=== PATIENT | male | born 1940 | race Caucasian/White ===

== ENCOUNTER 2022-12-27 08:30 | Day surgery (SDC) | payer OTHER, BC ==
[2022-12-23 13:19] LABS: Hematocrit 38.5 % (39.6-49.0); Lymphocytes % 19.8 % (15.3-44.8); MCV 93.8 fL (80-100); Platelets 170 thou/uL (152-406)
--- NOTE | 2022-12-23 13:29 | RAD REPORT ---
EXAM DESCRIPTION: RAD - Chest Pa And Lat (2 Views) - 12/23/2022 1:22 pm CLINICAL HISTORY: Pre op pending heart catheterization Chest pain. COMPARISON: Chest Pa And Lat (2 Views) dated 01/02/2019; Chest Pa And Lat (2 Views) dated 05/19/2017; Chest Pa And Lat (2 Views) dated 04/18/2017; Chest Single View dated 03/11/2017 TECHNIQUE: PA and lateral views of the chest were obtained. FINDINGS: The lungs are hyperexpanded compatible with COPD. The heart is upper limit of normal in si ze. No fracture or aggressive bony process. IMPRESSION: COPD without acute process identified. The USPSTF recommends annual screening for lung cancer with low-dose CT (LDCT) in adults aged 50 to 8 0 years who have a 20 pack-year smoking history and currently smoke or have quit within the past 15 y ears.
[2022-12-23 13:41] LABS: Potassium 4.4 mEq/L (3.5-5.1)
[2022-12-27] MEDS ORDERED: NA CHLORIDE 0.9% 500 ML ONE (08:59)
[2022-12-27 09:21] VITALS: TEMP 97.4
[2022-12-27] MEDS ORDERED: VERAPAMIL HCL 10 MG/4 ML VIAL IV ONE (09:38)
[2022-12-27] MEDS ORDERED: LIDOCAINE 1% 20 ML MDV ONE (09:38)
[2022-12-27] MEDS ORDERED: MIDAZOLAM HCL 2 MG/2 ML INJ ONE (09:38)
[2022-12-27] MEDS ORDERED: HEPARIN 5000 UNIT/ML 1 ML VIAL ONE (09:38)
[2022-12-27] MEDS ORDERED: HEPA 1000U/500MLS 2,000 UNIT/1,000 ML BAG IV ONE (09:38)
[2022-12-27] MEDS ORDERED: CLOPIDOGREL 75 MG TABLET ONE (09:39)
[2022-12-27] MEDS ORDERED: ASPIRIN 325 MG TAB ONE (09:39)
[2022-12-27] MEDS ORDERED: ATROPINE SULF 1 MG/10 ML SYR IV ONE (09:39)
[2022-12-27] MEDS ORDERED: TICAGRELOR 90 MG TABLET PO ONE (09:39)
[2022-12-27] MEDS ORDERED: HEPARIN 10,000 UNIT/10 ML VIAL IV ONE (09:39)
[2022-12-27] MEDS ORDERED: FENTANYL CITR 100 MCG/2 ML ONE (09:40)
[2022-12-27] MEDS ORDERED: NITROGLYCERIN/D5W 25 MG/250 ML BTL IV ONE (10:03)
[2022-12-27] MEDS ORDERED: NITROGLYCERIN 100 MCG/ML SYR (for cath lab use only) IV ONE (10:03)
[2022-12-27 12:13] VITALS: O2SAT 95
[2022-12-27 12:40] VITALS: BP 145/55
--- NOTE | 2022-12-27 13:17 | EKG ---
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
--- NOTE | 2022-12-27 18:42 | OP ---
Date of Procedure: 12/27/2022 Surgeon: BRONSON NORIEGA Procedures Performed: 1.Selective coronary angiogram. 2.Left heart catheterization. Indication: Abnormal stress test with chest pain. Access: Right radial artery 6-Icelandic closed with TR band. Complications: None. Bleeding: Less than 20 mL. Description Of Procedure: After risks, benefits, alternatives were explained, patient agreed to proc edure and signed informed consent. Patient was brought into the cardiac catheterization laboratory, prepped and draped in usual sterile fashion. Then, I accessed the right radial artery using [employer] micropuncture kit, placed 6-Icelandic Slender sheath and took 5-Icelandic [place] 4.0 catheter into the aor tic root, engaged left main and right coronary artery, took standard views. Catheter was pushed over the wire into the LV, measured the LVEDP. Pullback did not record any gradient. Removed the cathet er and the sheath, placed TR band with good hemostasis. Findings: 1.Left main: It is moderate-sized and normal. 2.LAD: Diffusely small artery mid 70%, mid to distal 60%, and luminal irregularity throughout. Mil d diffuse disease of the diagonal branches. 3.Left circumflex: It is a large artery with the ostial 80%, mid 60%, and then OM branch takes off and has proximal 90% stenosis and then there is luminal irregularity and [id number] circ is 90% st enosed. 4.RCA: There is dominant circulation with the distal 50%, and the PDA has ostial 90% and mid 70%. 5.LVEDP normal at 9 mmHg. Conclusion: 1.Severe multivessel coronary artery disease. 2.Normal LVEDP. Recommendation: A CABG eval. /JOSIEL Voice ID: [id number] Report ID: [id number]
== END 2022-12-27 12:35 | disposition home or self-care (01) ==
LOC: CCL 08:30
PROVIDERS: ATTEND Internal Medicine
DX: I25.10 Atherosclerotic heart disease of native coronary artery without angina pectoris (principal); I10 Essential (primary) hypertension; E11.9 Type 2 diabetes mellitus without complications; E78.2 Mixed hyperlipidemia; R60.0 Localized edema; Z79.4 Long term (current) use of insulin; Z79.899 Other long term (current) drug therapy; Z82.49 Family history of ischemic heart disease and other diseases of the circulatory system
CPT/HCPCS: 93005; 85025; 80048; 36415; 85610; 82947 ×2; 85730; 71046; 93458; 76937; C1893; Q9966; J1644; J2001; J2250; J3010; J7040; J0461

== ENCOUNTER 2024-09-21 00:05 | Inpatient (IN) | payer OTHER, BC ==
[2024-09-21 00:55] LABS: Absolute Lymphocytes (CBC) 0.6 K/uL (0.7-4.9); Absolute Monocytes 0.3 K/uL (0.1-1.3); Absolute Neutrophil 6.2 K/uL (1.8-8.0); Basophils % 0.2 % (0-1.3); Eosinophils % 0.3 % (0-4.4); Hematocrit 43.6 % (39.6-49.0); Hemoglobin 13.9 g/dL (13.6-17.9); Lymphocytes % 8.2 % (15.3-44.8); MCH 32.3 pg (27.0-35.0); MCHC 31.9 g/dL (32.0-36.0); MCV 101.2 fL (80-100); MPV 8.6 fL (7.6-11.3); Monocytes % 4.9 % (3.3-12.3); Neutrophils % 86.4 % (41.7-73.7); Nucleated Red Blood Cells % 0.1 % (0-0); Platelets 213 thou/uL (152-406); RBC Red Blood Cell Count 4.31 M/uL (4.33-5.43); Red Cell Distribution Width 14.6 % (12.1-15.2)
[2024-09-21] MEDS ORDERED: NA CHLORIDE 0.9% 500 ML ONE (00:56)
[2024-09-21 00:58] LABS: PT Prothrombin Time 11.4 SECONDS (10-13.0)
[2024-09-21 01:26] LABS: Albumin 3.8 g/dL (3.4-5.0); Anion Gap 22.8 mEq/L (5.0-15.0); Bilirubin Direct 0.3 mg/dL (0-0.2); Bilirubin Indirect, Calculated 0.7 mg/dL (0.2-0.8); Magnesium 2.3 mg/dL (1.6-2.4); Potassium 5.8 mEq/L (3.5-5.1); Protein, Total 7.8 g/dL (6.4-8.2); Troponin High Sensitivity 19.5 pg/mL (<58.9)
--- NOTE | 2024-09-21 01:36 | EDPHYS ---
Physician Documentation [facility] Name: Nickolas Ortiz Age: 84 yrs Sex: Male : 1940 Arrival Date: 09/21/2024 Time: 00:05 Bed 17 Private MD: ED Physician Zay Johnson HPI: 09/21 00:30 This 84 yrs old Male presents to ER via Unassigned with complaints of generalized sp3 weakness, high blood sugar. 00:30 84-year-old male with history of hyperlipidemia, diabetes, CAD status post CABG sp3 presents via EMS for generalized weakness, near syncope and hyperglycemia. EMS also reports that he had bradycardic episode into the 40s x 1 while having emesis. Symptoms began on for the last 24 hours or so. Patient is very poor historian. ROS currently negative for headache, neck pain, chest pain, shortness of breath, diarrhea, fever, known sick contacts, prolonged immobilization, or any other signs or symptoms on ROS at this time.. Historical: - Allergies: 01:25 No Known Allergies; bm8 - Home Meds: 01:25 amlodipine 10 mg tab twice daily [Active]; areds eye drops [Active]; aspirin 81 mg Oral bm8 chew once daily [Active]; hydrochlorothiazide 12.5 mg Oral cap 1 cap twice daily [Active]; irbesartan 300 mg Oral tab 1 tab once daily [Active]; levothyroxine 175 mcg tab 1 tab once daily [Active]; losartan 100 mg Oral tab 1 tab once daily [Active]; Novolin N Sub-Q [Active]; Novolin R Sub-Q [Active]; Vitamin D Oral [Active]; - PMHx: 01:25 Diabetes - IDDM; High Cholesterol; "heart Problems" (High Cholesterol); bm8 - PSHx: 01:25 x5 "heart bypasses" (High Cholesterol); bm8 - Immunization history:: Adult Immunizations unknown. - Infectious Disease History:: Denies. - Social history:: Smoking status: unknown. ROS: 00:32 Constitutional: Negative for fever, chills, and weight loss, Eyes: Negative for injury, sp3 pain, redness, and discharge, Neck: Negative for injury, pain, and swelling, Respiratory: Negative for shortness of breath, cough, wheezing, and pleuritic chest pain, Back: Negative for injury and pain, MS/Extremity: Negative for injury and deformity, Skin: Negative for injury, rash, and discoloration, Neuro: Negative for headache, weakness, numbness, tingling, and seizure, Psych: Negative for depression, anxiety, suicide ideation, homicidal ideation, and hallucinations, Allergy/Immunology: Negative for hives, rash, and allergies, Endocrine: Negative for neck swelling, polydipsia, polyuria, polyphagia, and marked weight changes, Hematologic/Lymphatic: Negative for swollen nodes, abnormal bleeding, and unusual bruising, 00:32 All other systems are negative, Exam: 00:32 Constitutional: This is a well developed, well nourished patient who is awake, alert, sp3 and in no acute distress. Head/Face: Normocephalic, atraumatic. Eyes: Pupils equal round and reactive to light, extra-ocular motions intact. Lids and lashes normal. Conjunctiva and sclera are non-icteric and not injected. Cornea within normal limits. Periorbital areas with no swelling, redness, or edema. Neck: Trachea midline, no thyromegaly or masses palpated, and no cervical lymphadenopathy. Supple, full range of motion without nuchal rigidity, or vertebral point tenderness. No Meningismus. Chest/axilla: Normal chest wall appearance and motion. Nontender with no deformity. No lesions are appreciated. Cardiovascular: Regular rate and rhythm with a normal S1 and S2. No gallops, murmurs, or rubs. Normal PMI, no JVD. No pulse deficits. Respiratory: Lungs have equal breath sounds bilaterally, clear to auscultation and percussion. No rales, rhonchi or wheezes noted. No increased work of breathing, no retractions or nasal flaring. Abdomen/GI: Soft, non-tender, with normal bowel sounds. No distension or tympany. No guarding or rebound. No evidence of tenderness throughout. Back: No spinal tenderness. No costovertebral tenderness. Full range of motion. Skin: Warm, dry with normal turgor. Normal color with no rashes, no lesions, and no evidence of cellulitis. MS/ Extremity: Pulses equal, no cyanosis. Neurovascular intact. Full, normal range of motion. Neuro: Awake and alert, GCS 15, oriented to person, place, time, and situation. Cranial nerves II-XII grossly intact. Motor strength 5/5 in all extremities. Sensory grossly intact. Cerebellar exam normal. Normal gait. Psych: Awake, alert, with orientation to person, place and time. Behavior, mood, and affect are within normal limits. 01:28 ECG was reviewed by the Attending Physician. EKG demonstrates normal sinus rhythm at 74 sp3 bpm with normal intervals except QTc of 468, normal QRS, normal axis, nonspecific diffuse ST/T changes without evidence of acute ischemia. Vital Signs: 00:14 BP 141 / 45; Pulse 76; Resp 18; Temp 97.8(O); Pulse Ox 97% on R/A; Weight 80.29 kg; oe Height 5 ft. 8 in. ; 01:29 BP 126 / 42; Pulse 80; Resp 17; Temp 97.8; Pulse Ox 97% ; Pain 5/10; bm8 04:47 BP 133 / 53; Pulse 88; Resp 17 S; Pulse Ox 95% on R/A; ha1 00:14 Body Mass Index 26.91 (80.29 kg, 172.72 cm) oe 01:29 Pain Scale: Adult bm8 MDM: 00:12 Medical Screening Exam initiated sp3 00:32 Data reviewed: vital signs, nurses notes, EMS record, old medical records, lab test sp3 result(s), radiologic studies. ED course: 84-year-old male with PMH above now with hyperglycemia and generalized weakness. Differential diagnosis includes DKA, hyperglycemia, dehydration, other metabolic syndrome, ACS, among others. Workup will include EKG, chest x-ray, general labs including lactate and intervention with insulin and/or IV fluids as needed. Disposition pending workup and patient course.. 01:34 ED course: Patient with anion gap and elevated blood glucose. ABG pending we will sp3 continue IV fluids and insulin drip. Patient will be admitted to internal medicine.. 09/21 00:12 Order name: Basic Metabolic Panel; Complete Time: : sp3 09/21 00:12 Order name: CBC with Diff sp3 09/21 00:12 Order name: LFT's; Complete Time: : sp3 09/21 00:12 Order name: Magnesium; Complete Time: : sp3 09/21 00:12 Order name: NT PRO-BNP; Complete Time: :32 sp3 09/21 00:12 Order name: PT-INR; Complete Time: 01:32 sp3 09/21 00:12 Order name: Troponin HS; Complete Time: 01:32 sp3 09/21 00:12 Order name: Lactate w/ 2H reflex if indic.; Complete Time: 01:32 sp3 09/21 00:59 Order name: Manual Differential EDMS 09/21 01:32 Order name: Ghost Lactate-NO COLLECT Timer EDMS 09/21 01:33 Order name: ABG sp3 09/21 02:33 Order name: CBC with Automated Diff EDMS 09/21 02:33 Order name: CBC with Automated Diff EDMS 09/21 02:33 Order name: Comprehensive Metabolic Panel EDMS 09/21 02:33 Order name: Comprehensive Metabolic Panel EDMS 09/21 02:37 Order name: Basic Metabolic Panel EDMS 09/21 02:37 Order name: Basic Metabolic Panel EDMS 09/21 02:37 Order name: Basic Metabolic Panel EDMS 09/21 02:37 Order name: Basic Metabolic Panel EDMS 09/21 05:17 Order name: Lactate Sepsis 2 HR Follow-up EDMS 09/21 05:28 Order name: Glucose, Ancillary Testing EDMS 09/21 00:12 Order name: XRAY Chest (1 view) sp3 09/21 00:12 Order name: Cardiac monitoring; Complete Time: 01: sp3 09/21 00:12 Order name: EKG - Nurse/Tech; Complete Time: 01: sp3 09/21 00:12 Order name: IV Saline Lock; Complete Time: 00:55 sp3 09/21 00:12 Order name: Labs collected and sent; Complete Time: 00:55 sp3 09/21 00:12 Order name: O2 Per Protocol; Complete Time: 01: sp3 09/21 00:12 Order name: O2 Sat Monitoring; Complete Time: : sp3 09/21 00:33 Order name: Accucheck; Complete Time: 05:27 sp3 09/21 03:50 Order name: Labs - recollect needed: green top; Complete Time: 05:10 kmf Administered Medications: 01:08 Drug: NS 0.9% IV 500 ml 500 ml IV at 1 bolus once; to be given as a bolus over 30 ha1 minutes Volume: 500 ml; Route: IV; Rate: 1 bolus; Site: right antecubital; 02:38 Follow up: Response: No adverse reaction; IV Status: Completed infusion bm8 02:24 Drug: Insulin Drip - (Insulin Regular Human IVP 100 units, NS 0.9% IV 100 ml) IV at bm8 calculated rate continuous; Standard concentration 1unit/ml; Dose for DKA is 0.1 units/kg/hr {Co-Signature: lg3 (Kristyn Camejo RN).} Route: IV; Rate: calculated rate; Site: left forearm; 02:37 Follow up: Response: No adverse reaction; IV Status: Infusion continued upon admission bm8 05:30 Follow up: Response: No adverse reaction; IV Status: Infusion continued upon admission ha1 02:25 Drug: NS 0.9% IV 1000 ml IV at 1000 ml once; to be given as a bolus over 60 minutes bm8 Route: IV; Rate: 1000 ml; Site: left forearm; 02:38 Follow up: Response: No adverse reaction; IV Status: Infusion continued upon admission bm8 03:11 Drug: Ondansetron IVP 8 mg IVP once; over 2 minutes Route: IVP; Site: right antecubital; 03:30 Follow up: Response: No adverse reaction; Nausea is decreased ha1 Disposition Summary: 09/21/24 01:36 Hospitalization Ordered Notes: Hospitalization Status: Inpatient Admission sp3 Provider: Slava Altman Location: Intensive Care Unit sp3 Condition: Fair sp3 Problem: an acute exacerbation sp3 Symptoms: have worsened sp3 Bed/Room Type: Standard 3 Room Assignment: 5-(09/21/24 04:43) Diagnosis - DKA, lactic acidosis, dehydration sp3 Forms: - Medication Reconciliation Form sp3 - SBAR form sp3 - Leadership Thank You Letter sp3 Critical care time excluding procedures: 01:35 Critical care time: Bedside Care: 20 minutes, Consultation: 10 minutes. Total time: 30 sp3 minutes Signatures: Dispatcher [employer] Mary Barriga RN RN kl Patel, Setul, MD MD sp3 Taya Cota RN RN ha1 Mariely Garcia [facility] Salvador Jaramillo RN RN bm8 Kristyn Camejo RN lg3 Corrections: (The following items were deleted from the chart) 00:13 00:13 BASIC METABOLIC PANEL+C.LAB.BRZ ordered. EDMS EDMS 00:13 00:13 CBC+H.LAB.BRZ ordered. EDMS EDMS 00:13 00:13 HEPATIC FUNCTION+C.LAB.BRZ ordered. EDMS EDMS 00: 00:13 MAGNESIUM+C.LAB.BRZ ordered. EDMS EDMS 00:13 00:13 PROBNP+C.LAB.BRZ ordered. EDMS EDMS 00: 00:13 PROTIME (+INR)+COAG.LAB.BRZ ordered. EDMS EDMS 00: 00:13 Troponin High Sensitivity+C.LAB.BRZ ordered. EDMS EDMS 00: 00:13 LACTATE+C.LAB.BRZ ordered. EDMS EDMS 00:13 00:13 Chest Single View+RAD.RAD.BRZ ordered. EDMS EDMS 04:43 01:36 sp3 kl
--- NOTE | 2024-09-21 01:36 | ER ---
Nurse's Notes [facility] Name: Nickolas Oritz Age: 84 yrs Sex: Male : 1940 Arrival Date: 09/21/2024 Time: 00:05 Bed 17 Private MD: Diagnosis: DKA, lactic acidosis, dehydration Presentation: 09/21 00:11 Chief complaint: Patient states: i have chest pain that started last ngiht. bm8 00:11 Coronavirus screen: At this time, the client does not indicate any symptoms associated bm8 with coronavirus-19. Ebola Screen: Patient negative for fever greater than or equal to 101.5 degrees Fahrenheit, and additional compatible Ebola Virus Disease symptoms Patient denies exposure to infectious person. Patient denies travel to an Ebola-affected area in the 21 days before illness onset. No symptoms or risks identified at this time. Initial Sepsis Screen: Does the patient meet any 2 criteria? No. Patient's initial sepsis screen is negative. Does the patient have a suspected source of infection? No. Patient's initial sepsis screen is negative. Risk Assessment: Do you want to hurt yourself or someone else? Patient reports no desire to harm self or others. Onset of symptoms is unknown. 00:11 Method Of Arrival: EMS: [facility] bm8 00:11 Acuity: ROBEL 2 bm8 Triage Assessment: 01:25 General: Appears in no apparent distress. uncomfortable, Behavior is calm, appropriate bm8 for age. Pain: Complains of pain in chest Pain currently is 5 out of 10 on a pain scale. Quality of pain is described as aching, crampy. EENT: No deficits noted. No signs and/or symptoms were reported regarding the EENT system. Neuro: Level of Consciousness is awake, alert, obeys commands, Oriented to person, place, situation, Appropriate for age. Cardiovascular: Reports chest pain, Heart tones S1 S2 present Capillary refill < 3 seconds in bilateral fingers. Respiratory: Airway is patent Respiratory effort is even, unlabored, Respiratory pattern is regular, symmetrical, Breath sounds are clear bilaterally. Historical: - Allergies: 01:25 No Known Allergies; bm8 - Home Meds: 01:25 amlodipine 10 mg tab twice daily [Active]; areds eye drops [Active]; aspirin 81 mg Oral bm8 chew once daily [Active]; hydrochlorothiazide 12.5 mg Oral cap 1 cap twice daily [Active]; irbesartan 300 mg Oral tab 1 tab once daily [Active]; levothyroxine 175 mcg tab 1 tab once daily [Active]; losartan 100 mg Oral tab 1 tab once daily [Active]; Novolin N Sub-Q [Active]; Novolin R Sub-Q [Active]; Vitamin D Oral [Active]; - PMHx: 01:25 Diabetes - IDDM; High Cholesterol; "heart Problems" (High Cholesterol); bm8 - PSHx: 01:25 x5 "heart bypasses" (High Cholesterol); bm8 - Immunization history:: Adult Immunizations unknown. - Infectious Disease History:: Denies. - Social history:: Smoking status: unknown. Screenin:47 [facility] ED Fall Risk Assessment (Adult) History of falling in the last 3 months, ha1 including since admission Yes- single mechanical fall (1 pt) Confusion or Disorientation Yes (5 pts) Intoxicated or Sedated No (0 pts) Impaired Gait Yes (1 pt) Mobility Assist Device Used Yes (1 pt) Altered Elimination Yes (1 pt) Score/Fall Risk Level 3 or more points = High Risk Oriented to surroundings, Maintained a safe environment, Educated pt \\T\\ family on fall prevention, incl call for assistance when getting out of bed, Hourly rounding (assess needs \\T\\ fall precautionary measures) done. Abuse screen: Denies threats or abuse. Denies injuries from another. Nutritional screening: No deficits noted. Tuberculosis screening: No symptoms or risk factors identified. Assessment: 03:00 Reassessment: Patient and/or family updated on plan of care and expected duration. Pain ha1 level reassessed. Neuro: Level of Consciousness is awake, alert, obeys commands, Oriented to person, situation. Cardiovascular: Capillary refill < 3 seconds Patient's skin is warm and dry. Respiratory: Airway is patent Respiratory effort is even, unlabored, Respiratory pattern is regular, symmetrical. GI: Abdomen is round non-distended, Reports nausea, vomiting. : No signs and/or symptoms were reported regarding the genitourinary system. Derm: Skin is pink, warm \\T\\ dry. Musculoskeletal: Circulation, motion, and sensation intact. 03:50 Reassessment: Patient and/or family updated on plan of care and expected duration. Pain ha1 level reassessed. 05:15 Reassessment: report given ADALI Guadarrama. ha1 Vital Signs: 00:14 BP 141 / 45; Pulse 76; Resp 18; Temp 97.8(O); Pulse Ox 97% on R/A; Weight 80.29 kg; oe Height 5 ft. 8 in. ; 01:29 BP 126 / 42; Pulse 80; Resp 17; Temp 97.8; Pulse Ox 97% ; Pain 5/10; bm8 04:47 BP 133 / 53; Pulse 88; Resp 17 S; Pulse Ox 95% on R/A; ha1 00:14 Body Mass Index 26.91 (80.29 kg, 172.72 cm) oe 01:29 Pain Scale: Adult bm8 ED Course: 00:11 Patient arrived in ED. sp3 00:11 Zay Johnson MD is Attending Physician. sp3 00:11 Patient has correct armband on for positive identification. Placed in gown. Bed in low ha1 position. Call light in reach. Side rails up X 1. 00:54 Inserted saline lock: 22 gauge in right forearm, using aseptic technique. Blood oe collected. Flushed with 10 mL NS. 00:55 Basic Metabolic Panel Sent. oe 00:55 CBC with Diff Sent. oe 00:55 LFT's Sent. oe 00:55 Magnesium Sent. oe 00:55 NT PRO-BNP Sent. oe 00:55 PT-INR Sent. oe 00:56 Troponin HS Sent. oe 00:59 XRAY Chest (1 view) In Process Unspecified. EDMS 01:06 EKG done, by ED staff, reviewed by Zay Johnson MD. oe 01:20 Salvador Jaramillo, RN is Primary Nurse. bm8 01:25 Triage completed. bm8 01:25 Arm band placed on right wrist. bm8 01:35 Slava Altman MD is Hospitalizing Provider. sp3 05:14 Inserted saline lock: 22 gauge in left Blood collected. Flushed with 10 mL NS. oe 05:17 No provider procedures requiring assistance completed. Patient admitted, IV remains in ha1 place. Administered Medications: 01:08 Drug: NS 0.9% IV 500 ml 500 ml IV at 1 bolus once; to be given as a bolus over 30 ha1 minutes Volume: 500 ml; Route: IV; Rate: 1 bolus; Site: right antecubital; 02:38 Follow up: Response: No adverse reaction; IV Status: Completed infusion bm8 02:24 Drug: Insulin Drip - (Insulin Regular Human IVP 100 units, NS 0.9% IV 100 ml) IV at bm8 calculated rate continuous; Standard concentration 1unit/ml; Dose for DKA is 0.1 units/kg/hr {Co-Signature: lg3 (Kristyn Camejo RN).} Route: IV; Rate: calculated rate; Site: left forearm; 02:37 Follow up: Response: No adverse reaction; IV Status: Infusion continued upon admission bm8 05:30 Follow up: Response: No adverse reaction; IV Status: Infusion continued upon admission ha1 02:25 Drug: NS 0.9% IV 1000 ml IV at 1000 ml once; to be given as a bolus over 60 minutes bm8 Route: IV; Rate: 1000 ml; Site: left forearm; 02:38 Follow up: Response: No adverse reaction; IV Status: Infusion continued upon admission bm8 03:11 Drug: Ondansetron IVP 8 mg IVP once; over 2 minutes Route: IVP; Site: right antecubital;kl 03:30 Follow up: Response: No adverse reaction; Nausea is decreased ha1 Medication: 04:48 VIS not applicable for this client. ha1 Outcome: 01:36 Decision to Hospitalize by Provider. sp3 05:17 Admitted to ICU accompanied by nurse, via stretcher, room 5, with chart, ha1 05:17 Condition: stable 05:17 Instructed on the need for admit, Demonstrated understanding of instructions, 06:08 Patient left the ED. ha1 Signatures: Dispatcher [employer] Mary Barriga, RN Vinnie Hernandez Setul, MD MD sp3 Taya Cota RN RN ha1 Salvador Jaramillo RN RN bm8 Able, Lacie RN lg3
[2024-09-21] MEDS ORDERED: INSULIN REGULAR (HUMAN) 100 UNIT/ML ONE (02:08)
[2024-09-21] MEDS ORDERED: NA CHLORIDE 0.9% 100 ML ONE (02:09)
[2024-09-21] MEDS ORDERED: NA CHLORIDE 0.9% 1,000 ML ONE (02:09)
[2024-09-21 02:13] LABS: Band Neutrophils 6 % (0-1); Blood Morphology Comment NOT SEEN (NOT SEEN); Differential Total Cells Count 100; Eosinophils 1 % (0-3); Lymphocytes 9 % (15-42); Monocytes 3 % (0-10); Platelet Estimate ADEQ; Reactive Lymphocytes 1 %; Segmented Neutrophils 80 % (40-80)
[2024-09-21] MEDS ORDERED: ACETAMINOPHEN 325 MG TABLET PO PRN (02:28)
[2024-09-21] MEDS ORDERED: ONDANSETRON 4 MG/2 ML VIAL IV PRN (02:28)
[2024-09-21] MEDS ORDERED: D50W 25 GM/50 ML SYRINGE IV PRN (02:35)
[2024-09-21] MEDS ORDERED: GLUCAGON 1 MG/VIAL IM PRN (02:35)
--- NOTE | 2024-09-21 02:38 | P.HP ---
Certification for Inpatient Patient admitted to: Inpatient With expected LOS: >2 Midnights Practitioner: I am a practitioner with admitting privileges, knowledge of patient current condition, hospital course, and medical plan of care. Services: Services provided to patient in accordance with Admission requirements found in Title 42 Section 412.3 of the Code of Federal Regulations Patient History Date of Service: 09/21/24 Reason for admission: DKA History of Present Illness: 84-year-old male with history of hyperlipidemia, diabetes, CAD status post CABG, hypertension, hypothyroidism came in with generalized weakness and near syncope episodes and noted to be having high blood sugar and was brought to ER. He also had some bradycardic episodes and associated with nausea and 1 episode of vomiting. Symptoms started 1 day ago. Denies any fever or chills. No sick contacts. Complains of insomnia as well. Patient is a poor historian hence most of the history is obtained from the chart review and also talking to the ER physician Patient was assessed in the ER and was found to be in DKA and was admitted to the ICU Allergies No Known Allergies Allergy (Verified 12/23/22 12:45) Home medications list reviewed: Yes Home Medications: Amlodipine [Norvasc*] 1 tab PO BID 02/14/17 Insulin NPH Human [Novolin N (Humulin N)*] 24 units SQ DAILY 02/14/17 Irbesartan [Avapro] 1 tab PO DAILY 02/14/17 Levothyroxine Sodium 1 tab PO DAILY 02/14/17 Losartan Potassium 1 tab PO DAILY 02/14/17 hydroCHLOROthiazide [Hydrochlorothiazide] 12.5 mg PO BID 02/14/17 Insulin -Regular Human [Novolin -R*] See Protocol SQ TID 03/11/17 Atorvastatin Calcium [Lipitor*] 40 mg PO BEDTIME 03/27/17 Metoclopramide HCl [Reglan] 5 mg PO DAILY #10 tablet 03/29/17 - Past Medical/Surgical History Diabetic: No Past Medical History: Reviewed- Non-Contributory -: HTN -: hyperlipidemia -: IDDM -: GLAUCOMA -: HYPOTHROIDISM, -: BPH -: CARDIAC STENT -: MACULAR DEGNERATIVE Past Surgical History: Reviewed- Non-Contributory -: TURP -: pelvic sx. - Social History Smoking Status: Never smoker Alcohol use: No CD- Drugs: No Caffeine use: Yes Review of Systems 10-point ROS is otherwise unremarkable Physical Examination - Vital Signs Temperature: 97.8 F Blood Pressure: 168/72 Pulse: 66 Respirations: 18 Pulse Ox (%): 94 - Physical Exam General: Alert, In no apparent distress HEENT: Atraumatic, Normocephalic Neck: Supple Respiratory: Clear to auscultation bilaterally, Normal air movement Cardiovascular: Regular rate/rhythm, Normal S1 S2 Capillary refill: <2 Seconds Gastrointestinal: Soft and benign, W/out hepatosplenomegaly Musculoskeletal: No clubbing, No swelling Integumentary: No rashes Neurological: Other (Alert awake nonfocal) Lymphatics: No axilla or inguinal lymphadenopathy - Studies Laboratory Data (last 24 hrs) 09/21/24 09/21/24 09/21/24 00:31 00:31 00:31 WBC 7.10 Hgb 13.9 Hct 43.6 Plt Count 213 PT 11.4 INR 1.00 Sodium 126 L Potassium 5.8 H BUN 41 H Creatinine 2.18 H Glucose 817 H* Magnesium 2.3 Total Bilirubin 1.0 AST 29 ALT 40 Alkaline Phosphatase 131 H Assessment and Plan - Plan Diabetic ketoacidosis Admit to ICU Started on insulin drip Anion gap monitored ABG findings noted IV hydration Oxygen supplementation Will monitor BMP every 4 hours Accu-Chek q. 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
[2024-09-21] MEDS ORDERED: ONDANSETRON 4 MG/2 ML VIAL ONE (03:07)
[2024-09-21] MEDS ORDERED: D10W 125 ML IV PRN (03:09)
--- NOTE | 2024-09-21 05:41 | RAD REPORT ---
EXAM: XR Chest, 1 View CLINICAL HISTORY: The patient is 84 years old and is Male; MALAISE TECHNIQUE: Frontal view of the chest. COMPARISON: XR Chest dated May 22 2024 FINDINGS: LUNGS: The lungs are hyperinflated with mild coarse interstitial markings. There is no lobar cons olidation. PLEURAL SPACE: Unremarkable. No pneumothorax. HEART: Unremarkable. No cardiomegaly. MEDIASTINUM: Unremarkable. Normal mediastinal contour. BONES/JOINTS: Evidence of median sternotomy is noted. Degenerative change of the shoulders and spine is present. No acute fracture. UPPER ABDOMEN: Unremarkable as visualized. IMPRESSION: No acute cardiopulmonary process. Electronically signed by: Carolina Whitaker MD 09/21/2024 02:38 AM CDT RP Due to temporary technical issues with the PACS/ideasoft reporting system, reports are being prakash d by the in-house radiologist without review as a courtesy to ensure prompt reporting the interpreting radiologist is fully responsible for the content of the report. Transcribed Date/Time: 09/21/2024 5:41 AM
[2024-09-21] MEDS: NACHLORIDE 0.45% 1,000 ML IV SCH (06:07)
[2024-09-21 06:32] VITALS: BMI 26.2
[2024-09-21 07:10] LABS: Anion Gap 14.9 mEq/L (5.0-15.0); Potassium 3.9 mEq/L (3.5-5.1)
[2024-09-21 08:28] LABS: Anion Gap 11.5 mEq/L (5.0-15.0); Potassium 4.5 mEq/L (3.5-5.1)
[2024-09-21] MEDS: ENOXAPARIN 30 MG/0.3 ML SQ SCH (09:00)
[2024-09-21] MEDS: VALSARTAN 160 MG TAB PO SCH (09:00)
[2024-09-21] MEDS: INSULIN NPH (HUMAN) 100 UNITS/ML SQ SCH (10:21)
[2024-09-21] MEDS: LEVOTHYROXINE SOD 0.075 MG TAB PO SCH (10:21)
[2024-09-21] MEDS: LEVOTHYROXINE SOD 0.1 MG TAB PO SCH (10:21)
[2024-09-21] MEDS: INSULIN REGULAR, HUMAN 100 UNIT in NA CHLORIDE 0.9% 100 ML IV SCH (11:46)
[2024-09-21 12:32] LABS: Anion Gap 9.7 mEq/L (5.0-15.0); Potassium 3.7 mEq/L (3.5-5.1)
[2024-09-21] MEDS ORDERED: PHENOL 1.4% ORAL SPRAY 180ML MM PRN (14:10)
[2024-09-21] MEDS: CEFTRIAXONE 1,000 MG in NA CHLORIDE 0.9% 50 ML IVPB ONE (14:45)
[2024-09-21] MEDS: METHYLPREDNISOLONE 40 MG INJ IV ONE (14:45)
[2024-09-21] MEDS: TAMSULOSIN 0.4 MG SR CAP PO ONE (14:45)
[2024-09-21 16:11] LABS: Arterial Blood Carboxyhemoglob 0.9 % (0-1.5); Blood Gas Oxyhemoglobin 87.7 % (94-97); Blood O2 Saturation 90.2 % (92-98.5)
[2024-09-21 16:12] LABS: Blood Gas THB 12.9 g/dl (12-18)
[2024-09-21] MEDS: AMLODIPINE 10 MG TAB PO SCH (21:03)
[2024-09-21] MEDS: TAMSULOSIN 0.4 MG SR CAP PO SCH (21:03)
[2024-09-21] MEDS: ATORVASTATIN 40 MG TAB PO SCH (21:03)
[2024-09-22] MEDS: INSULIN REGULAR (HUMAN) 100 UNIT/ML SQ SCH (01:45)
[2024-09-22] MEDS: TAMSULOSIN 0.4 MG SR CAP PO ONE (02:09)
[2024-09-22 05:32] LABS: Absolute Lymphocytes (CBC) 0.8 K/uL (0.7-4.9); Absolute Monocytes 0.6 K/uL (0.1-1.3); Absolute Neutrophil 10.3 K/uL (1.8-8.0); Basophils % 0.1 % (0-1.3); MCHC 33.5 g/dL (32.0-36.0); MCV 95.5 fL (80-100); MPV 7.7 fL (7.6-11.3); Monocytes % 4.9 % (3.3-12.3); Platelets 183 thou/uL (152-406); RBC Red Blood Cell Count 3.77 M/uL (4.33-5.43); Red Cell Distribution Width 13.9 % (12.1-15.2)
[2024-09-22 05:51] LABS: Albumin 2.9 g/dL (3.4-5.0); Albumin/Globulin Ratio 0.8 (1.1-1.8); Anion Gap 8.1 mEq/L (5.0-15.0); Bilirubin Total 0.4 mg/dL (0.2-1.0); Globulin 3.5 g/dL (2.3-3.5); Potassium 4.1 mEq/L (3.5-5.1); Protein, Total 6.4 g/dL (6.4-8.2)
[2024-09-22 08:22] VITALS: TEMP 97.8
[2024-09-22] MEDS ORDERED: HOME MED 1 EA UNK (Irbesartan [Avapro] 300 MG Tablet) PO SCH (09:00)
[2024-09-22] MEDS ORDERED: HOME MED 1 EA UNK (Levothyroxine Sodium [Levothyroxine Sodium] 175 MCG Tablet) PO SCH (09:00)
[2024-09-22 09:29] VITALS: O2SAT 96
[2024-09-22 12:20] VITALS: BP 131/58
[2024-09-23] MEDS ORDERED: ENOXAPARIN 40 MG/0.4 ML SQ SCH (09:00)
--- NOTE | 2024-09-27 11:57 | EKG ---
Test Date: 2024-09-21 Test Time: 01:03:26 Senior Producer: SOTERO MEASUREMENT RESULTS: Intervals: Rate: 74 ME: 174 QRSD: 94 QT: 422 QTc: 468 Streeter: P: 76 ME: 174 QRS: 108 T: 90 INTERPRETIVE STATEMENTS: Normal sinus rhythm Rightward axis Nonspecific ST and T wave abnormality Prolonged QT Abnormal ECG Compared to ECG 12/23/2022 13:00:36 ST (T wave) deviation now present Prolonged QT interval now present Sinus bradycardia no longer present Electronically Signed On 09-27-24 11:49:20 CDT by Kyle Wheeler
== END 2024-09-22 14:10 | disposition left against medical advice (07) | DRG 638 ==
LOC: ER 00:05 → ERHOLD 02:28 → 3RD-ICU 05:33 → 4TH 21:53
PROVIDERS: ADMIT Family Medicine; ATTEND Hospitalist
DX: E11.10 Type 2 diabetes mellitus with ketoacidosis without coma (principal); N17.9 Acute kidney failure, unspecified; E78.5 Hyperlipidemia, unspecified; E87.5 Hyperkalemia; E03.9 Hypothyroidism, unspecified; E86.0 Dehydration; N40.0 Benign prostatic hyperplasia without lower urinary tract symptoms; I12.9 Hypertensive chronic kidney disease with stage 1 through stage 4 chronic kidney disease, or unspecified chronic kidney disease; N18.2 Chronic kidney disease, stage 2 (mild); E11.22 Type 2 diabetes mellitus with diabetic chronic kidney disease; I25.10 Atherosclerotic heart disease of native coronary artery without angina pectoris; Z79.4 Long term (current) use of insulin; Z95.1 Presence of aortocoronary bypass graft; Z95.5 Presence of coronary angioplasty implant and graft; Z79.890 Hormone replacement therapy; Z79.899 Other long term (current) drug therapy
CPT/HCPCS: 36415; 71045; 80048; 80053; 80076; 82805; 82947; 83605; 83735; 83880; 84484; 85025; 85610; 93005; 94760; 99285; J0696; J1650; J1815; J2405; J2919; J7030; J7040

== ENCOUNTER 2025-02-13 08:08 | Day surgery (SDC) | payer OTHER, BC ==
[2025-02-13 08:17] LABS: Absolute Lymphocytes (CBC) 1.2 K/uL (0.7-4.9); Hematocrit 41.0 % (39.6-49.0); Hemoglobin 13.4 g/dL (13.6-17.9); MCH 31.7 pg (27.0-35.0); MCHC 32.7 g/dL (32.0-36.0); MCV 96.9 fL (80-100); MPV 8.2 fL (7.6-11.3); Nucleated RBC Absolute Count 0.0 (0-0); Nucleated Red Blood Cells % 0.0 % (0-0); RBC Red Blood Cell Count 4.23 M/uL (4.33-5.43); White Blood Count 7.50 thou/uL (4.3-10.9)
[2025-02-13 08:35] LABS: Anion Gap 13.8 mEq/L (5.0-15.0); BUN Blood Urea Nitrogen 27.0 mg/dL (7-18); Potassium 4.8 mEq/L (3.5-5.1)
[2025-02-13 08:38] LABS: Glucose Level 475.0 mg/dL (74-106)
[2025-02-13 08:46] VITALS: BP 163/58; TEMP 98.5; O2SAT 96
== END 2025-02-13 08:38 | disposition left against medical advice (07) ==
LOC: OR 08:08
PROVIDERS: ATTEND Surgery
DX: K42.0 Umbilical hernia with obstruction, without gangrene (principal); Z53.09 Procedure and treatment not carried out because of other contraindication
CPT/HCPCS: 36415; 80048; 82947; 85025

== ENCOUNTER 2025-02-27 07:27 | Day surgery (SDC) | payer OTHER, BC ==
[2025-02-27] MEDS ORDERED: NA CHLORIDE 0.9% 1,000 ML ONE (08:22)
[2025-02-27 08:27] LABS: Anion Gap 9.7 mEq/L (5.0-15.0); BUN Blood Urea Nitrogen 16.0 mg/dL (7-18); Glucose Level 147.0 mg/dL (74-106); Potassium 3.7 mEq/L (3.5-5.1)
[2025-02-27] MEDS ORDERED: SUGAMMADEX SODIUM 200 MG/2 ML VIAL IV ONE (09:24)
[2025-02-27] MEDS ORDERED: ROCURONIUM 50 MG/5 ML VIAL IV ONE (09:27)
[2025-02-27] MEDS ORDERED: ONDANSETRON 4 MG/2 ML VIAL ONE (09:27)
[2025-02-27] MEDS ORDERED: LIDOCAINE 2% MPF 5 ML VIAL ONE (09:27)
[2025-02-27] MEDS ORDERED: FENTANYL CITR 100 MCG/2 ML ONE (09:28)
[2025-02-27] MEDS ORDERED: EPHEDRINE SULF 50 MG/ML VIAL ONE (10:22)
[2025-02-27] MEDS ORDERED: GLYCOPYRROLATE 0.2 MG/ML SYR ONE (10:22)
[2025-02-27] MEDS: CEFAZOLIN SODIUM 1 GM/VIAL ONE (10:35)
--- NOTE | 2025-02-27 11:06 | P.BOP ---
Preoperative diagnosis: incarcerated tender umbilical hernia Postoperative diagnosis: same Primary procedure: Laparoscopic repair of incarcerated tender umbilical hernia with mesh 3 cm Estimated blood loss: <10cc Specimen: sac Findings: as above, incarcerated omentum Anesthesia: General Complications: None Implants: ventralex mesh, sorbafix Transferred to: Recovery Room Condition: Good
[2025-02-27] MEDS: HYDROMORPHONE HCL 1 MG/ML INJ ONE (11:43)
--- NOTE | 2025-02-27 12:53 | OP ---
Date of Procedure: 02/27/2025 Surgeon: Ronald Alexander MD Preoperative Diagnosis: Tender incarcerated umbilical hernia. Postoperative Diagnosis: Tender incarcerated umbilical hernia. Procedure: Laparoscopic repair of tender incarcerated umbilical hernia with mesh 3 cm. Estimated Blood Loss: 10 cc. Specimens: Sac. Findings: Incarcerated omentum with intraabdominal adhesions. Anesthesia: General plus local. Implant: Ventralex mesh with SorbaFix device. Indications: This is the case of an 84-year-old patient who came to us with an incarcerated umbilica l hernia. The benefits, alternatives, and risks of repair with possible mesh fully explained, which include, but not limited to, infection, bleeding, damage to adjacent structures, anesthesia complicat ion, recurrence, MA, and even . He also understands this may not relieve any symptoms, he might need more than one surgical intervention. He also understands we might need mesh in that region, an d pros and cons of mesh placement were discussed with the patient. He signed a consent. He also had a bulging in the left lower quadrant and that the imaging did not show any hernia, he has asked me t o take a look from inside to see if there is any hernia in that region. Description Of Procedure: The patient was brought to the operating room, placed in supine position. Anesthesia was induced without complication. Abdominal area was prepped and draped in usual sterile fashion. Local anesthetic was applied after a time-out followed by a curvilinear incision in the in fraumbilical region. Incision was carried down until we found the hernia sac, that from um bilical skin, opened the hernia sac. Some of the omentum that could not be retracted, had to be liga mark. There were some adhesions inside holding the omentum against the abdominal wall. We will addre ss that issue laparoscopically. We cleaned the fascial edges, put Vicryl #1 in a wbrpqs-gf-ucilr fas hion multiple times, if not enough, to put a Stewart trocar through it. Once we obtained pneumoperito neum, we proceeded then to inspect the area. Once again, we noticed the omentum attached to the ante rior abdominal wall. We selected two areas to put a 5 mm trocar in the lateral sites of the abdomen. This 5 mm trocar was placed under direct visualization. Then, we switched the camera to that area to see the midline. With the help of LigaSure, we proceeded to then release the omentum from the ant erior abdominal wall with no enterotomies. Once we have that we checked for hemostasis. No bleeding . Now regarding the bulging that he has on the left lower quadrant, we put the cameras there as the picture shows with my finger pointing to there are no hernias in that region, just a weakening of the muscle, and probably nerve related, but at least no violation of the peritoneum of the abdominal wal l in the sense of any broken area. So, at that moment, we concentrated the plan for today which is t he umbilical hernia. We selected a Ventralex mesh that covered the area about 3-5 cm overlapped, put that through the Stewart trocar. Stewart trocar was removed. The mesh was against the abdominal wall and then secured it in place circumferentially with SorbaFix like device. Once it was against the a bdominal wall, we proceeded to remove the mesh straps. Then, after that, tied in the ajavhv-jo-hrnut fashion #1 Vicryl to obtain AirSeal. We further fixed laparoscopically again the mesh against the a bdominal wall. Injection of local anesthetic of that area. Then after that, I proceeded then to rem ove the trocars under direct vision. No bleeding so far. Then, after that, I closed the subcutaneou s tissue with 3-0 chromic and the skin with terri. Pneumoperitoneum was deflated under direct visu alization. Sponge counts and instrument counts were correct. The patient tolerated the procedure we ll. The patient was sent to recovery in stable condition. KARL/JESSE Voice ID: [id number] Report ID: [id number]
--- NOTE | 2025-02-27 12:59 | DS ---
Procedure: Laparoscopic repair of incarcerated tender umbilical hernia. Diagnosis: Incarcerated tender umbilical hernia. Condition: Stable. Disposition: Home. Activity: As tolerated. No heavy lifting. Discharge Instructions: Follow up in my office in 1 week. Call for appointment at [phone]. Keep a tonny dry for 48 hours, then may shower. Keep terri intact. May cover with bandage. Medications ca lled to the pharmacy. KARL/JESSE Voice ID: [id number] Report ID: [id number]
[2025-02-27] MEDS: HYDROCODONE/APAP 5/325 MG TAB ONE (13:45)
[2025-02-27 15:18] VITALS: TEMP 97; O2SAT 98
[2025-02-27 15:20] VITALS: BP 160/62
== END 2025-02-27 13:57 | disposition home or self-care (01) ==
LOC: OR 07:27
PROVIDERS: ATTEND Surgery
PROC: 0WUF4JZ Supplement Abdominal Wall with Synthetic Substitute, Percutaneous Endoscopic Approach (ICD-10-PCS; principal; 2025-02-27 11:15)
DX: K42.0 Umbilical hernia with obstruction, without gangrene (principal)
CPT/HCPCS: 80048; 36415; 82947 ×2; 88302; 49594; J2704; J2003; J3010; J1171; J2405; J7030; J0690

== ENCOUNTER 2025-02-28 08:50 | Emergency (ER) | payer OTHER, BC ==
[2025-02-28] MEDS ORDERED: LIDOCAINE HCL JELLY 2% 6 ML SYRINGE TOP ONE (09:21)
[2025-02-28] MEDS ORDERED: MORPHINE 4 MG/ML SYR ONE (09:54)
[2025-02-28 10:27] LABS: Absolute Lymphocytes (CBC) 1.3 K/uL (0.7-4.9); Hematocrit 40.1 % (39.6-49.0); Hemoglobin 13.2 g/dL (13.6-17.9); MCH 31.3 pg (27.0-35.0); MCHC 32.8 g/dL (32.0-36.0); MCV 95.3 fL (80-100); MPV 8.2 fL (7.6-11.3); Nucleated RBC Absolute Count 0.0 (0-0); Nucleated Red Blood Cells % 0.0 % (0-0); RBC Red Blood Cell Count 4.21 M/uL (4.33-5.43); White Blood Count 7.60 thou/uL (4.3-10.9)
[2025-02-28] MEDS ORDERED: LIDOCAINE VISCOUS 2% 10ML ORAL SOLN ONE (10:27)
[2025-02-28 10:39] LABS: Anion Gap 6.1 mEq/L (5.0-15.0); BUN Blood Urea Nitrogen 25.0 mg/dL (7-18); Glucose Level 226.0 mg/dL (74-106); Potassium 4.1 mEq/L (3.5-5.1)
--- NOTE | 2025-02-28 10:53 | ER ---
Nurse's Notes [facility] Name: Nickolas Ortiz Age: 84 yrs Sex: Male : 1940 Arrival Date: 02/28/2025 Time: 08:50 Bed 18 Private MD: Diagnosis: Hematuria, unspecified;Urinary retention Presentation: 02/28 09:00 Chief complaint: Patient states: C/O urinary retention since 1400 yesterday. patient ar8 had a hernia repair yesterday. 09:00 Coronavirus screen: At this time, the client does not indicate any symptoms associated ar8 with coronavirus-19. Ebola Screen: No symptoms or risks identified at this time. Initial Sepsis Screen: Does the patient meet any 2 criteria? No. Patient's initial sepsis screen is negative. Initial Sepsis Screen: Does the patient have a suspected source of infection? No. Patient's initial sepsis screen is negative. Risk Assessment: Do you want to hurt yourself or someone else? Patient reports no desire to harm self or others. Onset of symptoms was February 27, 2025 at 14:00. 09:00 Method Of Arrival: Ambulatory ar8 09:00 Acuity: ROBEL 3 ar8 Triage Assessment: 09:00 General: Appears uncomfortable, Behavior is calm, cooperative. ar8 09:00 Pain: Complains of pain in suprapubic area. Neuro: Level of Consciousness is awake, ar8 alert, obeys commands, Oriented to person, place, time, situation. Cardiovascular: Patient's skin is warm and dry. Respiratory: Airway is patent Respiratory effort is even, unlabored, Respiratory pattern is regular, symmetrical. GI: No signs and/or symptoms were reported involving the gastrointestinal system. : bloody, Bladder is distended Reports discharge, bloody, inability to void, since 02/27/25 1400. Derm: Skin is dry, Skin is pink, warm \T\ dry. Skin temperature is warm. Historical: - Allergies: 10:16 No Known Allergies; ar8 - PSHx: 10:16 hernia repair; ar8 - Immunization history:: Adult Immunizations not up to date. - Infectious Disease History:: Denies. - Social history:: Smoking status: Patient denies any tobacco usage or history of. Screenin:15 [facility] ED Fall Risk Assessment (Adult) History of falling in the last 3 months, ar8 including since admission No falls in past 3 months (0 pts) Confusion or Disorientation No (0 pts) Intoxicated or Sedated No (0 pts) Impaired Gait No (0 pts) Mobility Assist Device Used No (0 pt) Altered Elimination No (0 pt) Score/Fall Risk Level 0 - 2 = Low Risk Oriented to surroundings, Maintained a safe environment. Abuse screen: Denies threats or abuse. Nutritional screening: No deficits noted. Tuberculosis screening: No symptoms or risk factors identified. Assessment: 10:19 Reassessment: See triage assessment. ar8 Vital Signs: 09:00 BP 172 / 69; Pulse 44; Resp 16; Pulse Ox 97% ; ar8 09:45 BP 180 / 76; Pulse 53; Resp 17; Pulse Ox 97% on R/A; ar8 10:30 BP 122 / 56; Pulse 42; Resp 15; Pulse Ox 93% on R/A; ar8 11:00 Pain 0/10; ar8 11:15 BP 107 / 54; Pulse 47; Resp 16; Pulse Ox 94% on R/A; ar8 11:45 BP 122 / 57; Pulse 44; Resp 15; Pulse Ox 98% on 2 lpm NC; Pain 0/10; ar8 11:00 Pain Scale: Adult ar8 11:45 Pain Scale: Adult ar8 ED Course: 08:54 Patient arrived in ED. iw 09:00 Henry Nelson DO is Attending Physician. ms3 09:10 Attempted arteaga catheter insertion x3. ERP aware of inability to place arteaga catheter. ar8 ED charge and ED RNx2 assisted with no success. 09:15 Placed in gown. Bed in low position. Call light in reach. Side rails up X2. Provided ar8 Education on: plan of care. Client placed on continuous cardiac and pulse oximetry monitoring. NIBP monitoring applied. 09:45 Arm band placed on right wrist. ar8 09:51 Jean Carlos Greene, RN is Primary Nurse. ar8 10:00 No provider procedures requiring assistance completed. Inserted saline lock: 20 gauge ar8 in left antecubital area, using aseptic technique. Blood collected. Flushed with 10 mL NS. 10:16 Triage completed. ar8 10:57 transfer initiated with Chiara at the [facility]. bc6 11:00 3-way catheter inserted, using sterile technique. ar8 11:11 acceptance received with Chiara to see Dr Apple Mello at [facility] ED. bc6 11:31 Report given to ADALI Warren at [facility]. ar8 11:31 Caprice with [facility] accepted transfer. 6 11:53 Patient transferred, IV remains in place. ar8 Administered Medications: 10:24 Drug: morphine IVP or IV 4 mg IVP once over 4 mins Route: IVP; Infused Over: 4 mins; ar8 Site: left antecubital; 11:00 Follow up: Pain 0/10 Adult; Response: No adverse reaction; Pain is decreased ar8 Medication: 10:19 VIS not applicable for this client. ar8 Outcome: 10:53 ER care complete, transfer ordered by . ms3 11:53 Transferred by ground EMS to [facility], [facility], Note: ED ar8 11:53 Condition: stable 11:53 Discharge instructions given to reason for transfer 11:55 Patient left the ED. ar8 Signatures: Tennille Luther, RN Henry Britt DO DO ms3 Jessi Greenfield 6 Jean Carlos Greene RN RN ar8
--- NOTE | 2025-02-28 10:53 | EDPHYS ---
Physician Documentation [facility] Name: Nickolas Ortiz Age: 84 yrs Sex: Male : 1940 Arrival Date: 02/28/2025 Time: 08:50 Bed 18 Private MD: ED Physician Henry Nelson HPI: 02/28 09:09 This 84 yrs old Male presents to ER via Unassigned with complaints of Hematuria, ms3 urinary retention. 09:09 84-year-old male with past medical history of diabetes, hypertension, hypothyroidism ms3 presents to the emergency department for being unable to urinate since 2 PM yesterday. Patient states he had a hernia repair performed by Dr. Alexander yesterday. Patient has had bleeding from his urethra. He states a catheter was placed during surgery.. Historical: - Allergies: 10:16 No Known Allergies; ar8 - PSHx: 10:16 hernia repair; ar8 - Immunization history:: Adult Immunizations not up to date. - Infectious Disease History:: Denies. - Social history:: Smoking status: Patient denies any tobacco usage or history of. ROS: 09:09 Constitutional: Negative for fever, and chills. Cardiovascular: Negative for chest ms3 pain, and palpitations. Respiratory: Negative for shortness of breath, cough, wheezing, and pleuritic chest pain, Abdomen/GI: Negative for abdominal pain, nausea, vomiting, diarrhea, and constipation, 09:09 : Positive for hematuria, Exam: 09:09 Constitutional: This is a well developed, well nourished patient who is awake, alert, ms3 and in no acute distress. Cardiovascular: Regular rate and rhythm with a normal S1 and S2. No gallops, murmurs, or rubs. Normal PMI, no JVD. No pulse deficits. Respiratory: Lungs have equal breath sounds bilaterally, clear to auscultation and percussion. No rales, rhonchi or wheezes noted. No increased work of breathing, no retractions or nasal flaring. Skin: Warm, dry with normal turgor. Normal color with no rashes, no lesions, and no evidence of cellulitis. MS/ Extremity: Pulses equal, no cyanosis. Neurovascular intact. Full, normal range of motion. 09:09 : Male external genitalia: Dried blood on distal penis. No blood in patient's undergarment, 09:09 Skin: Abdominal dressings clean, dry, intact. 09:13 Abdomen/GI: Inspection: abdomen appears normal, Abdominal dressings clean, dry, intact ms3 , Bowel sounds: normal, Palpation: moderate abdominal tenderness, in the suprapubic area, Vital Signs: 09:00 BP 172 / 69; Pulse 44; Resp 16; Pulse Ox 97% ; ar8 09:45 BP 180 / 76; Pulse 53; Resp 17; Pulse Ox 97% on R/A; ar8 10:30 BP 122 / 56; Pulse 42; Resp 15; Pulse Ox 93% on R/A; ar8 11:00 Pain 0/10; ar8 11:15 BP 107 / 54; Pulse 47; Resp 16; Pulse Ox 94% on R/A; ar8 11:45 BP 122 / 57; Pulse 44; Resp 15; Pulse Ox 98% on 2 lpm NC; Pain 0/10; ar8 11:00 Pain Scale: Adult ar8 11:45 Pain Scale: Adult ar8 MDM: 09:00 Medical Screening Exam initiated ms3 09:09 Differential diagnosis: UTI, urinary retention, Hematuria. ms3 11:08 Data reviewed: vital signs, nurses notes, and as a result, I will Transfer patient ms3 secondary to no Urology organizational development consultant. Management of patient was discussed with the following: Cattle Knocker: Dr Tyler Sue consult on patient.. ER Physician, Dr Mello. I considered the following discharge prescriptions or medication management in the emergency department Medications were administered in the Emergency Department. See MAR. Counseling: I had a detailed discussion with the patient and/or guardian regarding the historical points, exam findings, and any diagnostic results supporting the discharge/admit diagnosis, lab results, the need to transfer to another facility, [facility] does not immediately have the required specialist. ED course: Discussed necessity for transfer with patient and his friend. They understand and agree with plan. All questions were answered. 02/28 09:04 Order name: CBC with Diff; Complete Time: 10:52 ms3 02/28 09:04 Order name: BMP; Complete Time: 10:52 ms3 Administered Medications: 10:24 Drug: morphine IVP or IV 4 mg IVP once over 4 mins Route: IVP; Infused Over: 4 mins; ar8 Site: left antecubital; 11:00 Follow up: Pain 0/10 Adult; Response: No adverse reaction; Pain is decreased ar8 Disposition Summary: 02/28/25 10:53 Transfer Ordered Notes: Transfer Location: [facility] ms3 Reason: Higher level of care ms3 Condition: Stable ms3 Problem: new ms3 Symptoms: are unchanged ms3 Accepting Physician: (02/28/25 11:55) ar8 Diagnosis - Hematuria, unspecified ms3 - Urinary retention ms3 Forms: - Medication Reconciliation Form ms3 - SBAR form ms3 Signatures: Dispatcher [employer] EDMS Henry Nelson DO DO ms3 Jean Carlos Greene RN RN ar8 Corrections: (The following items were deleted from the chart) 09:01 09:01 UA Rfx [place] Cult if indicated+U.LAB.BRZ ordered. EDMS EDMS 09:05 09:05 CBC+H.LAB.BRZ ordered. EDMS EDMS 09:05 09:05 BASIC METABOLIC PANEL+C.LAB.BRZ ordered. EDMS EDMS 11:55 10:53 ms3 ar8
[2025-02-28 12:08] VITALS: BP 122/57; O2SAT 98
== END 2025-02-28 11:55 | disposition short-term general hospital (02) ==
LOC: ER 08:50
DX: R31.9 Hematuria, unspecified (principal); R33.9 Retention of urine, unspecified; Z98.890 Other specified postprocedural states
CPT/HCPCS: 36415; 80048; 85025; 96374; 99285

== ENCOUNTER 2025-03-01 06:58 | Inpatient (IN) | payer OTHER, BC ==
[2025-03-01] MEDS ORDERED: FAMOTIDINE 20 MG/2 ML VIAL IV ONE (07:36)
[2025-03-01 08:07] LABS: Absolute Lymphocytes (CBC) 0.6 K/uL (0.7-4.9); Hematocrit 38.0 % (39.6-49.0); Hemoglobin 12.0 g/dL (13.6-17.9); MCH 32.2 pg (27.0-35.0); MCHC 31.7 g/dL (32.0-36.0); MCV 101.7 fL (80-100); MPV 9.0 fL (7.6-11.3); Nucleated RBC Absolute Count 0.0 (0-0); Nucleated Red Blood Cells % 0.0 % (0-0); RBC Red Blood Cell Count 3.73 M/uL (4.33-5.43); White Blood Count 14.80 thou/uL (4.3-10.9)
[2025-03-01 08:16] LABS: PT Prothrombin Time 12.6 SECONDS (10-13.0); Protime INR 1.12
--- NOTE | 2025-03-01 08:26 | RAD REPORT ---
EXAMINATION: Abdomen Pelvis Wo Contrast CLINICAL INDICATION: Male, 84 years old.Abd pain;Abdominal distention TECHNIQUE: CT abdomen and pelvis was performed, without IV contrast, as per department protocol. Axia l, sagittal and coronal reconstructions were obtained. One or more of the following dose reduction techniques were used: Automated exposure control, adjustment of the mA and/or kV according to the pat ient size, and/or iterative reconstruction. Unless otherwise specified, incidental findings do not require dedicated imaging follow-up. [id number]. IV CONTRAST: Not administered. COMPARISON: 03/25/2017 FINDINGS: The lack of intravenous contrast limits the sensitivity of this exam for evaluation of solid visceral organs, vascular structures, and retroperitoneum. LOWER CHEST: No acute process identified. No significant pericardial effusion. Severe coronary artery calcifications. Moderate circumferential thickening of the distal esophagus which could reflect esophagitis. Endoscopy could better evaluate. Aortic valve and mitral annular calcifications. UPPER GI: Distended stomach. Possible mild wall thickening of the gastric antrum. LIVER: Nodular liver contour. GALLBLADDER/BILE DUCTS: No biliary ductal dilatation.? PANCREAS: Atrophy but no acute findings. SPLEEN: Unremarkable. ADRENALS: No adrenal masses. KIDNEYS AND URETERS: No hydronephrosis. Limited evaluation for renal lesions in the absence of IV con trast. No renal calculi. No ureteral calculi. ABDOMINAL AORTA AND OTHER VESSELS: Mild atherosclerotic changes. PERITONEUM: No abnormal free fluid. No free air. LYMPH NODES: No pathologic lymphadenopathy. ABDOMINAL WALL: Recent umbilical hernia repair. SMALL BOWEL/COLON: Small bowel has normal course and caliber. No colonic wall thickening or pericolon ic inflammatory changes. Normal appendix. Moderate diverticulosis without diverticulitis. URINARY BLADDER: Bladder wall thickening with gas. The catheter present. The bladder is mostly decomp ressed. REPRODUCTIVE ORGANS: No pathologic process. MUSCULOSKELETAL: Degenerative changes are present in the spine. Sternotomy. Transvenous iliac screws. Left anterior pelvic screw. Remote pelvic fractures. ADDITIONAL FINDINGS: None. IMPRESSION: No acute findings within the abdomen or pelvis. Normal appendix. Bladder decompressed from Haley catheter. Air within the bladder is probably related to instrumentati on. Recent ventral hernia repair. No complicating features.
[2025-03-01] MEDS ORDERED: NA CHLORIDE 0.9% 500 ML ONE (08:29)
[2025-03-01] MEDS ORDERED: NA CHLORIDE 0.9% 1,000 ML ONE ×2 (08:29→10:22)
[2025-03-01] MEDS ORDERED: CEFTRIAXONE 1000 MG/VIAL ONE (08:29)
[2025-03-01 08:33] LABS: AST/SGOT 20 U/L (15-37); Albumin 3.4 g/dL (3.4-5.0); Albumin/Globulin Ratio 0.9 (1.1-1.8); Alkaline Phosphatase 73 U/L (45-117); Anion Gap 31.7 mEq/L (5.0-15.0); BUN Blood Urea Nitrogen 46 mg/dL (7-18); Bilirubin Indirect, Calculated 0.8 mg/dL (0.2-0.8); Globulin 3.8 g/dL (2.3-3.5); Lipase 14 U/L (13-75); Magnesium 1.9 mg/dL (1.6-2.4); NT PRO-BNP 1115 pg/mL (<450); Troponin High Sensitivity 13.9 pg/mL (<58.9)
--- NOTE | 2025-03-01 08:33 | RAD REPORT ---
EXAM: Chest Single View HISTORY: 84 years Male ABDOMINAL DISTENTION COMPARISON: 09/21/2024 FINDINGS: LUNGS/PLEURA: The lungs are clear. No pleural effusions or pneumothorax. No pulmonary edema. CARDIAC/MEDIASTINUM: The cardiac silhouette is within normal limits. UPPER ABDOMEN: No significant abnormality. BONES: Sternotomy. No acute abnormality. LINES/TUBES/OTHER: N/A IMPRESSION: No evidence of acute cardiopulmonary disease.
[2025-03-01 08:34] LABS: ALT/SGPT < 14 U/L (16-61)
[2025-03-01 08:37] LABS: Potassium 6.7 mEq/L (3.5-5.1)
[2025-03-01 08:38] LABS: Glucose Level 598 mg/dL (74-106)
[2025-03-01] MEDS ORDERED: ALBUTEROL 2.5 MG/3 ML NEB SOL ONE (08:54)
[2025-03-01] MEDS ORDERED: INSULIN GLARGINE 100 UNIT/ML SQ ONE (08:55)
[2025-03-01] MEDS ORDERED: INSULIN REGULAR (HUMAN) 100 UNIT/ML ONE (08:56)
[2025-03-01] MEDS ORDERED: CALCIUM GLUCONATE 1 GM IVPB 1 GM/50 ML BAG IV ONE (08:57)
--- NOTE | 2025-03-01 09:04 | ER ---
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 Patient was seen ar8 in ED yesterday for abdominal retention following a hernia repair on 02/27/25. 07:08 Coronavirus screen: At this time, the client does not indicate any symptoms associated ar8 with coronavirus-19. Ebola Screen: No symptoms or risks identified at this time. Initial Sepsis Screen: Does the patient meet any 2 criteria? RR > 20 per min. No. Patient's initial sepsis screen is negative. Does the patient have a suspected source of infection? No. Patient's initial sepsis screen is negative. Risk Assessment: Do you want to hurt yourself or someone else? Patient reports no desire to harm self or others. Onset of symptoms was February 28, 2025. 07:08 Method Of Arrival: EMS: [facility] ar8 07:08 Acuity: ROBEL 3 ar8 Triage Assessment: 07:10 General: Appears uncomfortable, Behavior is restless. ar8 07:10 Pain: Complains of pain in right lower quadrant. Neuro: Level of Consciousness is ar8 awake, alert, obeys commands, confused, Oriented to person, place. Cardiovascular: Patient's skin is warm and dry. Respiratory: Airway is patent Respiratory effort is even, unlabored, Respiratory pattern is regular, symmetrical. GI: Abdomen is distended, Abdomen is tender to palpation in right lower quadrant. : Urine is camila blood. Derm: Skin is intact, Skin is dry, Skin is pale. Historical: - Allergies: 07:21 No Known Allergies; ar8 - Home Meds: 07:58 aspirin 81 mg Oral chew once daily [Active]; hydrochlorothiazide 12.5 mg Oral cap 1 cap jl7 twice daily [Active]; irbesartan 150 mg oral tablet 1 tab daily [Active]; levothyroxine 125 mcg oral tablet 1 tab daily [Active]; Novolin N NPH U-100 Insulin 100 unit/mL subcutaneous suspension 27 units every morning [Active]; Novolin R Sub-Q 12 units [Active]; metoprolol tartrate 25 mg oral tablet 1 tab 2 times per day [Active]; montelukast 10 mg oral tablet 1 tab [Active]; - PMHx: 07:58 Diabetes - IDDM; High Cholesterol; Hypertensive disorder; Hypothyroidism; jl7 - PSHx: 07:21 hernia repair; ar8 - Immunization history:: Adult Immunizations not up to date. - Infectious Disease History:: Denies. - Social history:: Smoking status: Patient denies any tobacco usage or history of. - Family history:: not pertinent. Screenin:15 [facility] ED Fall Risk Assessment (Adult) History of falling in the last 3 months, ar8 including since admission No falls in past 3 months (0 pts) Confusion or Disorientation No (0 pts) Intoxicated or Sedated No (0 pts) Impaired Gait No (0 pts) Mobility Assist Device Used No (0 pt) Altered Elimination No (0 pt) Score/Fall Risk Level 0 - 2 = Low Risk Oriented to surroundings, Maintained a safe environment. 07:15 Abuse screen: Denies threats or abuse. Nutritional screening: No deficits noted. ar8 Tuberculosis screening: No symptoms or risk factors identified. Assessment: 07:15 : Haley in place 16FR. ar8 07:29 Reassessment: See triage assessment. ar8 Vital Signs: 07:08 BP 150 / 51; Pulse 94; Resp 22; Temp 98(O); Pulse Ox 99% on R/A; Weight 82.1 kg; Height ar8 5 ft. 8 in. ; Pain 8/10; 08:29 BP 105 / 48; Pulse 96; Resp 22; Pulse Ox 100% ; pm7 09:15 BP 121 / 45; Pulse 93; Resp 20; Pulse Ox 100% on nebulizer mask; ar8 10:01 BP 95 / 42; Pulse 100; Resp 18; Pulse Ox 100% ; pm7 10:45 BP 93 / 40; Pulse 91; Resp 22; Pulse Ox 100% on R/A; Pain 0/10; ar8 11:15 BP 110 / 45; Pulse 91; Resp 17; Temp 99.4(A); Pulse Ox 100% on R/A; Pain 0/10; ar8 07:08 Body Mass Index 27.52 (82.10 kg, 172.72 cm) ar8 07:08 Pain Scale: Adult ar8 10:45 Pain Scale: Adult ar8 11:15 Pain Scale: Adult ar8 Stephen Coma Score: 08:48 Eye Response: spontaneous(4). Motor Response: obeys commands(6). Verbal Response: hanane oriented(5). Total: 15. ED Course: 07:10 Arm band placed on right wrist. ar8 07:15 Bed in low position. Call light in reach. Side rails up X2. Provided Education on: plan ar8 of care. Client placed on continuous cardiac and pulse oximetry monitoring. NIBP monitoring applied. 07:15 No provider procedures requiring assistance completed. ar8 07:17 Patient arrived in ED. ar8 07:18 Jean Carlos Greene RN is Primary Nurse. ar8 07:20 Deandre Basurto MD is Attending Physician. hanane 07:21 Triage completed. ar8 07:50 Missed attempt(s): 20 gauge in right forearm. Bleeding controlled, band aid applied, jl7 catheter tip intact. 07:52 EKG done, by ED staff, reviewed by Deandre Basurto MD. pm7 07:57 Initial lab(s) drawn, by ca, sent to lab. Inserted saline lock: 20 gauge in right jl7 antecubital area, using aseptic technique. Blood collected. Flushed with 10 mL NS. 08:02 XRAY Chest (1 view) In Process Unspecified. EDMS 08:[address] via stretcher. ar8 08:11 CT Abd/Pelvis - Without Contrast In Process Unspecified. EDMS 09:01 Dane Wood MD is Hospitalizing Provider. hanane 09:15 Inserted saline lock: 22 gauge in left forearm, using aseptic technique. ar8 09:45 Bladder irrigated via Haley with 180ml normal saline returned 220ml of bloody urine ar8 Patient tolerated well. 09:49 Noise minimized. Lights dimmed. Warm blanket given. pm7 11:00 Report given to ADALI Ferrara in ICU. ar8 11:15 Patient admitted, IV remains in place. ar8 Administered Medications: 08:35 Drug: Rocephin IV 1 grams IV at per protocol once; Given slow IV push per pharmacy ar8 instructions Route: IV; Rate: per protocol; Site: right antecubital; 08:45 Follow up: Response: No adverse reaction; IV Status: Completed infusion; IV Intake: [id number] 08:36 Not Given (Duplicate Order): ns 0.9% 500 ml 500 ml IV at 1 bolus once; to be given as a hanane bolus over 30 minutes 08:36 Not Given (Duplicate Order): ns 0.9% 1000 ml IV at 100 ml/hr once; to be given as a hanane bolus over 60 minutes 09:01 Not Given (Friend refused reporting pt is not supposed to take antacidss): [id number] ar8 mg IVP once; dilute with 10 mL 0.9% NaCl; give over 2 minutes 09:18 Drug: NS 0.9% IV (30 ml/kg) 30 ml/kg IV at bolus once; Sepsis Protocol; to be given as ar8 a bolus over 90 minutes Route: IV; Rate: bolus; Site: right antecubital; 11:27 Follow up: Response: No adverse reaction; IV Status: Infusion continued upon admission; ar8 IV Intake: 1800ml 09:18 Drug: Albuterol Inhalation 7.5 mg Inhalation once Route: Inhalation; ar8 09:45 Follow up: Response: No adverse reaction ar8 09:21 Drug: Insulin Glargine Sub-Q 30 units Sub-Q once {Co-Signature: conrad (Nancy Bates RN).} Route: Sub-Q; Site: right upper arm; 10:00 Follow up: Response: No adverse reaction ar8 09:25 Drug: Calcium Gluconate IVPB 1 grams IVPB once over 10 mins; (mix in NS 100 mL) Route: ar8 IVPB; Infused Over: 10 mins; Site: right antecubital; 09:35 Follow up: Response: No adverse reaction; IV Status: Completed infusion; IV Intake: [id number] 09:33 Drug: Insulin Regular Human IVP 10 units IVP once {Co-Signature: conrad (Nancy Bates RN).} Route: IVP; Site: right antecubital; 09:55 Drug: Piperacillin-Tazobactam IVPB 3.375 grams IVPB once over 60 mins; (mix in NS 100 ar8 mL) Route: IVPB; Infused Over: 60 mins; Site: right antecubital; 10:47 Follow up: Response: No adverse reaction; IV Status: Completed infusion; IV Intake: ar8 100ml 10:45 Drug: Insulin Drip - (Insulin Regular Human IVP 100 units, NS 0.9% IV 100 ml) IV at 6 ar8 units/hr continuous; Standard concentration 1unit/ml; Dose for DKA is 0.1 units/kg/hr {Co-Signature: db (Nancy Bates RN).} Route: IV; Rate: 6 units/hr; Site: right antecubital; 11:15 Follow up: Response: No adverse reaction; IV Status: Infusion continued upon admission; ar8 IV Intake: 3.42ml Medication: 07:29 VIS not applicable for this client. ar8 Intake: 08:45 IV: 10ml; Total: 10ml. ar8 09:35 IV: 50ml; Total: 60ml. ar8 10:47 IV: 100ml; Total: 160ml. ar8 11:15 IV: 3ml; Total: 163ml. ar8 11:27 IV: 1800ml; Total: 1963ml. ar8 Output: 09:45 Urine: 200ml (Haley); Total: 200ml. ar8 Outcome: 09:03 Decision to Hospitalize by Provider. hanane 11:15 Admitted to ICU accompanied by nurse, accompanied by bhargav, via stretcher, room 2, on ar8 monitor, with chart, Report called to ADALI Ferrara 11:15 Condition: stable ar8 11:15 Condition: stable 11:33 Patient left the ED. iw Signatures: Dispatcher [employer] EDDeandre Villasenor MD MD cha Williams, Irene, RN ADALI iw Lexa Arndt RN RN Jean Carlos Ovalle RN RN ar8 Loulou Elena 7 Nancy Bates RN Corrections: (The following items were deleted from the chart) 07:48 07:10 Neuro: Level of Consciousness is awake, alert, obeys commands, Oriented to ar8 person, place, time, situation, ar8 08:07 07:58 PMHx: "heart problems" (High Cholesterol); jl7 jl7 08:07 07:58 PSHx: x5 "heart bypasses"; jl7 jl
--- NOTE | 2025-03-01 09:04 | EDPHYS ---
Physician Documentation [facility] Name: Nickolas Ortiz Age: 84 yrs Sex: Male : 1940 Arrival Date: 03/01/2025 Time: 06:58 Bed 7 Private MD: ED Physician Deandre Basurto HPI: 03/01 08:48 This 84 yrs old Male presents to ER via EMS with complaints of Abdominal Pain.hanane 08:48 The patient presents with abdominal pain in the upper abdomen, in the lower abdomen. hanane Onset: The symptoms/episode began/occurred 2 day(s) ago. The symptoms do not radiate. Associated signs and symptoms: Pertinent positives: dysuria, floey , blocked. Modifying factors: The symptoms are alleviated by nothing, the symptoms are aggravated by nothing. floey blocked. Severity of pain: At its worst the pain was moderate in the emergency department the pain is unchanged. The patient has not experienced similar symptoms in the past. Historical: - Allergies: 07:21 No Known Allergies; ar8 - Home Meds: 07:58 aspirin 81 mg Oral chew once daily [Active]; hydrochlorothiazide 12.5 mg Oral cap 1 cap jl7 twice daily [Active]; irbesartan 150 mg oral tablet 1 tab daily [Active]; levothyroxine 125 mcg oral tablet 1 tab daily [Active]; Novolin N NPH U-100 Insulin 100 unit/mL subcutaneous suspension 27 units every morning [Active]; Novolin R Sub-Q 12 units [Active]; metoprolol tartrate 25 mg oral tablet 1 tab 2 times per day [Active]; montelukast 10 mg oral tablet 1 tab [Active]; - PMHx: 07:58 Diabetes - IDDM; High Cholesterol; Hypertensive disorder; Hypothyroidism; jl7 - PSHx: 07:21 hernia repair; ar8 - Immunization history:: Adult Immunizations not up to date. - Infectious Disease History:: Denies. - Social history:: Smoking status: Patient denies any tobacco usage or history of. - Family history:: not pertinent. ROS: 08:48 Constitutional: Negative for fever, chills, and weight loss, Eyes: Negative for injury, hanane pain, redness, and discharge, ENT: Negative for injury, pain, and discharge, Neck: Negative for injury, pain, and swelling, Cardiovascular: Negative for chest pain, palpitations, and edema, Respiratory: Negative for shortness of breath, cough, wheezing, and pleuritic chest pain, Back: Negative for injury and pain, MS/Extremity: Negative for injury and deformity, Skin: Negative for injury, rash, and discoloration, Neuro: Negative for headache, weakness, numbness, tingling, and seizure, Psych: Negative for depression, anxiety, suicide ideation, homicidal ideation, and hallucinations, Allergy/Immunology: Negative for hives, rash, and allergies, Endocrine: Negative for neck swelling, polydipsia, polyuria, polyphagia, and marked weight changes, Hematologic/Lymphatic: Negative for swollen nodes, abnormal bleeding, and unusual bruising, 08:48 Abdomen/GI: Positive for abdominal pain, abdominal cramps, guaman not draining, Exam: 08:48 Constitutional: This is a well developed, well nourished patient who is awake, alert, hanane and in no acute distress. Head/Face: Normocephalic, atraumatic. Eyes: Pupils equal round and reactive to light, extra-ocular motions intact. Lids and lashes normal. Conjunctiva and sclera are non-icteric and not injected. Cornea within normal limits. Periorbital areas with no swelling, redness, or edema. ENT: Nares patent. No nasal discharge, no septal abnormalities noted. Tympanic membranes are normal and external auditory canals are clear. Oropharynx with no redness, swelling, or masses, exudates, or evidence of obstruction, uvula midline. Mucous membranes moist. Neck: Trachea midline, no thyromegaly or masses palpated, and no cervical lymphadenopathy. Supple, full range of motion without nuchal rigidity, or vertebral point tenderness. No Meningismus. Chest/axilla: Normal chest wall appearance and motion. Nontender with no deformity. No lesions are appreciated. Cardiovascular: Regular rate and rhythm with a normal S1 and S2. No gallops, murmurs, or rubs. Normal PMI, no JVD. No pulse deficits. Respiratory: Lungs have equal breath sounds bilaterally, clear to auscultation and percussion. No rales, rhonchi or wheezes noted. No increased work of breathing, no retractions or nasal flaring. Back: No spinal tenderness. No costovertebral tenderness. Full range of motion. Skin: Warm, dry with normal turgor. Normal color with no rashes, no lesions, and no evidence of cellulitis. MS/ Extremity: Pulses equal, no cyanosis. Neurovascular intact. Full, normal range of motion., bilateral aka Neuro: Awake and alert, GCS 15, oriented to person, place, time, and situation. Cranial nerves II-XII grossly intact. Motor strength 5/5 in all extremities. Sensory grossly intact. Cerebellar exam normal. Normal gait. Psych: Awake, alert, with orientation to person, place and time. Behavior, mood, and affect are within normal limits. 08:48 ECG was reviewed by the Attending Physician. 08:48 Abdomen/GI: Inspection: distension, that is moderate, Bowel sounds: normal, Palpation: mild abdominal tenderness, in all quadrants, Liver: no appreciated palpable abnormalities, Hernia: not appreciated, recent repair, Vital Signs: 07:08 BP 150 / 51; Pulse 94; Resp 22; Temp 98(O); Pulse Ox 99% on R/A; Weight 82.1 kg; Height ar8 5 ft. 8 in. ; Pain 8/10; 08:29 BP 105 / 48; Pulse 96; Resp 22; Pulse Ox 100% ; pm7 09:15 BP 121 / 45; Pulse 93; Resp 20; Pulse Ox 100% on nebulizer mask; ar8 10:01 BP 95 / 42; Pulse 100; Resp 18; Pulse Ox 100% ; pm7 10:45 BP 93 / 40; Pulse 91; Resp 22; Pulse Ox 100% on R/A; Pain 0/10; ar8 11:15 BP 110 / 45; Pulse 91; Resp 17; Temp 99.4(A); Pulse Ox 100% on R/A; Pain 0/10; ar8 07:08 Body Mass Index 27.52 (82.10 kg, 172.72 cm) ar8 07:08 Pain Scale: Adult ar8 10:45 Pain Scale: Adult ar8 11:15 Pain Scale: Adult ar8 Stephen Coma Score: 08:48 Eye Response: spontaneous(4). Motor Response: obeys commands(6). Verbal Response: hanane oriented(5). Total: 15. MDM: 07:20 Medical Screening Exam initiated hanane 07:20 Medical Screening Exam initiated hanane 08:52 Differential diagnosis: diverticulitis, gastritis, gastroesophageal reflux disease, GI hanane Bleed, Irritable bowel syndrome, Mesenteric ischemia or infarction, non-specific abd pain, pancreatitis, Peptic Ulcer Disease, Prostatitis, Pyelonephritis, Ureterolithiasis, urinary tract infection. Data reviewed: vital signs, nurses notes, lab test result(s), EKG, radiologic studies, CT scan, plain films. Consideration of Admission/Observation Escalation of care including admission/observation considered. I considered the following discharge prescriptions or medication management in the emergency department Medications were administered in the Emergency Department. See MAR. Independent interpretation of the following test(s) in the Emergency Department EKG: See my EKG interpretation above. Test considered but Not performed: Ultrasound no abd usg. Historians other than the Patient: Spouse/Significant Other: well informed. Care significantly affected by the following chronic conditions: Diabetes, Hypertension, Obesity, Chronic Kidney Disease, hypothyroid. Counseling: I had a detailed discussion with the patient and/or guardian regarding the historical points, exam findings, and any diagnostic results supporting the discharge/admit diagnosis, lab results, radiology results, the need for further work-up and treatment in the hospital. 03/01 07:29 Order name: Basic Metabolic Panel; Complete Time: 08:45 [facility] 03/01 07:29 Order name: CBC with Diff hanane 03/01 07:29 Order name: LFT's; Complete Time: 08:45 [facility] 03/01 07:29 Order name: Magnesium; Complete Time: 08:45 [facility] 03/01 07:29 Order name: NT PRO-BNP; Complete Time: 08:45 [facility] 03/01 07:29 Order name: PT-INR; Complete Time: 08:35 [facility] 03/01 07:29 Order name: Troponin HS; Complete Time: 08:45 [facility] 03/01 07:29 Order name: Lipase; Complete Time: 08:45 [facility] 03/01 07:29 Order name: UA Rfx [place] Cult if indicated; Complete Time: 09:15 [facility] 03/01 08:32 Order name: CBC Smear Scan [facility] 03/01 08:38 Order name: Blood Culture Adult (2) [facility] 03/01 08:38 Order name: Lactate w/ 2H reflex if indic.; Complete Time: 09:49 [facility] 03/01 08:39 Order name: Glucose, Ancillary Testing; Complete Time: 08:45 [facility] 03/01 08:57 Order name: ABG [facility] 03/01 09:14 Order name: Urine Culture [facility] 03/01 09:56 Order name: Ghost Lactate-NO COLLECT Timer EDMS 03/01 10:09 Order name: Glucose, Ancillary Testing EDMS 03/01 10:39 Order name: Basic Metabolic Panel EDMS 03/01 10:39 Order name: Basic Metabolic Panel EDMS 03/01 10:39 Order name: Basic Metabolic Panel EDMS 03/01 10:39 Order name: Basic Metabolic Panel EDMS 03/01 10:39 Order name: Magnesium EDMS 03/01 10:39 Order name: Magnesium EDMS 03/01 10:39 Order name: Magnesium EDMS 03/01 10:39 Order name: Magnesium EDMS 03/01 10:39 Order name: Magnesium EDMS 03/01 10:39 Order name: Magnesium EDMS 03/01 10:39 Order name: Magnesium EDMS 03/01 10:39 Order name: Magnesium EDMS 03/01 10:39 Order name: Magnesium EDMS 03/01 10:39 Order name: Magnesium EDMS 03/01 10:39 Order name: Magnesium EDMS 03/01 10:39 Order name: Phosphorus EDMS 03/01 10:39 Order name: Phosphorus EDMS 03/01 10:39 Order name: Phosphorus EDMS 03/01 10:39 Order name: Phosphorus EDMS 03/01 10:39 Order name: CBC with Automated Diff EDMS 03/01 10:39 Order name: CBC with Automated Diff EDMS 03/01 10:39 Order name: CBC with Automated Diff EDMS 03/01 10:39 Order name: CBC with Automated Diff EDMS 03/01 10:40 Order name: Phosphorus EDMS 03/01 10:40 Order name: Phosphorus EDMS 03/01 10:40 Order name: Phosphorus EDMS 03/01 10:40 Order name: Phosphorus EDMS 03/01 10:40 Order name: Phosphorus EDMS 03/01 10:40 Order name: Phosphorus EDMS 03/01 10:40 Order name: Phosphorus EDMS 03/01 07:29 Order name: XRAY Chest (1 view); Complete Time: 08:35 hanane 03/01 07:49 Order name: CT Abd/Pelvis - Without Contrast; Complete Time: 08:35 hanane 03/01 07:29 Order name: EKG; Complete Time: 07:30 hanane 03/01 07:29 Order name: Cardiac monitoring; Complete Time: 07:30 hanane 03/01 07:29 Order name: EKG - Nurse/Tech; Complete Time: 07:52 [facility] 03/01 07:29 Order name: IV Saline Lock; Complete Time: 08:06 [facility] 03/01 07:29 Order name: Labs collected and sent; Complete Time: 08:07 [facility] 03/01 07:29 Order name: O2 Per Protocol; Complete Time: 07:30 [facility] 03/01 07:29 Order name: O2 Sat Monitoring; Complete Time: 07:30 [facility] 03/01 07:42 Order name: NPO; Complete Time: 07:57 [facility] 03/01 07:49 Order name: Misc. Order: IRRIGATE GUAMAN, IF NOT ABLE TO FLOW REPLACE WITH 3 WAY; [facility] Complete Time: 09:36 03/01 08:39 Order name: IV Saline Lock - Large Bore; Complete Time: 08:44 [facility] EC:48 Rate is 92 beats/min. Rhythm is regular. QRS Holt is Normal. NE interval is prolonged hanane at 214 msec. QRS interval is normal. No Q waves. T waves are Normal. No ST changes noted. Clinical impression: 1st degree heart block and Sinus tachycardia. Interpreted by me. Reviewed by me. Administered Medications: 08:35 Drug: Rocephin IV 1 grams IV at per protocol once; Given slow IV push per pharmacy ar8 instructions Route: IV; Rate: per protocol; Site: right antecubital; 08:45 Follow up: Response: No adverse reaction; IV Status: Completed infusion; IV Intake: [id number] 08:36 Not Given (Duplicate Order): ns 0.9% 500 ml 500 ml IV at 1 bolus once; to be given as a hanane bolus over 30 minutes 08:36 Not Given (Duplicate Order): ns 0.9% 1000 ml IV at 100 ml/hr once; to be given as a hanane bolus over 60 minutes 09:01 Not Given (Friend refused reporting pt is not supposed to take antacidss): [id number] ar8 mg IVP once; dilute with 10 mL 0.9% NaCl; give over 2 minutes 09:18 Drug: NS 0.9% IV (30 ml/kg) 30 ml/kg IV at bolus once; Sepsis Protocol; to be given as ar8 a bolus over 90 minutes Route: IV; Rate: bolus; Site: right antecubital; 11:27 Follow up: Response: No adverse reaction; IV Status: Infusion continued upon admission; ar8 IV Intake: 1800ml 09:18 Drug: Albuterol Inhalation 7.5 mg Inhalation once Route: Inhalation; ar8 09:45 Follow up: Response: No adverse reaction ar8 09:21 Drug: Insulin Glargine Sub-Q 30 units Sub-Q once {Co-Signature: conrad (Nancy Bates RN).} Route: Sub-Q; Site: right upper arm; 10:00 Follow up: Response: No adverse reaction ar8 09:25 Drug: Calcium Gluconate IVPB 1 grams IVPB once over 10 mins; (mix in NS 100 mL) Route: ar8 IVPB; Infused Over: 10 mins; Site: right antecubital; 09:35 Follow up: Response: No adverse reaction; IV Status: Completed infusion; IV Intake: [id number] 09:33 Drug: Insulin Regular Human IVP 10 units IVP once {Co-Signature: conrad (Nancy Bates RN).} Route: IVP; Site: right antecubital; 09:55 Drug: Piperacillin-Tazobactam IVPB 3.375 grams IVPB once over 60 mins; (mix in NS 100 ar8 mL) Route: IVPB; Infused Over: 60 mins; Site: right antecubital; 10:47 Follow up: Response: No adverse reaction; IV Status: Completed infusion; IV Intake: ar8 100ml 10:45 Drug: Insulin Drip - (Insulin Regular Human IVP 100 units, NS 0.9% IV 100 ml) IV at 6 ar8 units/hr continuous; Standard concentration 1unit/ml; Dose for DKA is 0.1 units/kg/hr {Co-Signature: conrad (Nancy Bates RN).} Route: IV; Rate: 6 units/hr; Site: right antecubital; 11:15 Follow up: Response: No adverse reaction; IV Status: Infusion continued upon admission; ar8 IV Intake: 3.42ml Disposition Summary: 03/01/25 09:03 Hospitalization Ordered Notes: Hospitalization Status: Inpatient Admission hanane Provider: Dane Wood cha Location: Intensive Care Unit hanane Condition: Serious hanane Problem: new hanane Symptoms: have improved hanane Bed/Room Type: Standard [facility] Room Assignment: 2-(03/01/25 10:45) eb Diagnosis - Acute kidney failure, unspecified hanane - Retention of urine, unspecified hanane - 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 Total time: 70 minutes Signatures: Dispatcher [employer] EDMS Deandre Basurto MD MD cha Leal, Jahala RN RN jl7 Radha Puente Jennifer, PROGRAM SERVICES PLANNER PROGRAM SERVICES PLANNER [email or web address] Jean Carlos Greene RN RN ar8 Nancy Bates RN db Corrections: (The following items were deleted from the chart) 07:30 07:30 Abdomen Pelvis W Con+CT.RAD.BRZ ordered. EDMS EDMS 07:50 07:49 Abdomen Pelvis Wo Con+CT.RAD.BRZ ordered. EDMS EDMS 08:07 07:58 PMHx: "heart problems" (High Cholesterol); jl7 jl7 08:07 07:58 PSHx: x5 "heart bypasses"; jl7 jl7 08:38 08:38 BLOOD CULTURE*+BA.LAB.BRZ ordered. EDMS EDMS 08:38 08:38 LACTATE+C.LAB.BRZ ordered. EDMS EDMS 08:57 08:57 Arterial Blood Gas+RC.LAB.BRZ ordered. EDMS EDMS 10:45 09:03 hanane eb
[2025-03-01 09:09] LABS: Sqamous Epithelial None Seen /HPF (None Seen); Urine Crystals Unidentified Many /HPF (None Seen); Urine Culture Reflex Order REFLEXED; Urine Microscopic Reflex YN ORDER UMIC; Urine WBC Clump Many /HPF (None Seen); Urine Yeast (Budding) Many /HPF (None Seen)
[2025-03-01] MEDS ORDERED: PIPERACIL/TAZO 3.375 GM VIAL IV ONE (09:26)
[2025-03-01] MEDS ORDERED: NA CHLORIDE 0.9% 100 ML ONE (09:27)
[2025-03-01] MEDS ORDERED: GLUCAGON 1 MG/VIAL IM PRN (09:35)
[2025-03-01 09:46] LABS: Blood O2 Saturation 99.3 % (92.0-98.5)
[2025-03-01 09:47] LABS: Arterial Blood Carboxyhemoglob 0.9 % (0.0-1.5); Blood Gas Inspired Oxygen 40.0 %; Blood Gas Oxyhemoglobin 97.2 % (94.0-97.0)
[2025-03-01 10:15] LABS: Blood Morphology Comment NOT SEEN (NOT SEEN); White Blood Cell Scan OK (OK)
--- NOTE | 2025-03-01 11:29 | P.HP ---
Certification for Inpatient With expected LOS: >2 Midnights Patient will require the following post-hospital care: None Practitioner: I am a practitioner with admitting privileges, knowledge of patient current condition, hospital course, and medical plan of care. Services: Services provided to patient in accordance with Admission requirements found in Title 42 Section 412.3 of the Code of Federal Regulations Patient History Date of Service: 03/01/25 Reason for admission: DKA/Urinary Retention History of Present Illness: Patient is an 84-year-old male with past medical history of hypertension, hyperlipidemia, diabetes type 2, glaucoma, hypothyroidism, BPH and macular degenerative disease who presents to the ED with complaints of abdominal pain with bladder distention and hematuria x 24 hours. Patient is s/p ventral hernia repair 2 days ago. ED workup showed WBC 14.8 potassium 6.7, blood glucose >500, lactic 9.8, CO2 13, and anion gap 31.7. CT abdomen/pelvis was completed with no acute findings. Patient was found to have several blood clots within the bladder and Arteaga was exchanged while in the ED. Patient now being admitted for DKA with UTI/urinary retention. Allergies No Known Allergies Allergy (Verified 02/27/25 07:54) Home medications list reviewed: Yes Home Medications: Albuterol Neb [Proventil 0.083% Neb Soln] 2.5 mg IH Q4HP PRN 02/13/25 Aspirin [Aspirin EC 81 MG] 81 mg PO DAILY 02/13/25 Atorvastatin Calcium 40 mg PO DAILY 02/13/25 Fluoride (Sodium) [Prevident] 1 appl DT BEDTIME 02/13/25 Insulin NPH Human [Novolin N (Humulin N)*] 27 units SQ DAILY 02/13/25 Insulin Regular, Human [Novolin R] 12 unit SQ AC PRN 02/13/25 Irbesartan 150 mg PO BEDTIME 02/13/25 Levothyroxine [Synthroid] 125 mcg PO [id number] 02/13/25 Magnesium Oxide [Magnesium] 400 mg PO BEDTIME 02/13/25 Melatonin 10 mg PO BEDTIME 02/13/25 Metoprolol Tartrate [Lopressor] 25 mg PO BID 02/13/25 Montelukast [Singulair] 10 mg PO DAILY 02/13/25 Spironolactone [Aldactone] 25 mg PO DAILY 02/13/25 Tamsulosin HCl 0.4 mg PO BEDTIME 02/13/25 Timolol 0.5% Opth [Timoptic 0.5% Opth*] 1 drops LEFT EYE BID 02/13/25 Triamcin 0.1% [Kenalog Lotion 0.1%] 1 appl TOP BIDP PRN 02/13/25 Vit C/E/Zn/Coppr/Lutein/Zeaxan [Preservision Areds 2 Softgel] 1 each PO DAILY 02/13/25 Vitamin D3/Vitamin K2 (Mk4) [K2 Plus D3 Tablet] 1 each PO DAILY 02/13/25 hydroCHLOROthiazide [Hydrochlorothiazide*] 12.5 mg PO BID 02/13/25 Codeine/APAP [Tylenol W/Codeine #3 tab] 1 tab PO Q6HP PRN #1 tab 02/27/25 - Past Medical/Surgical History Has patient received pneumonia vaccine in the past: Yes Diabetic: No -: HTN -: hyperlipidemia -: IDDM -: GLAUCOMA -: HYPOTHROIDISM, -: BPH -: CARDIAC STENT -: MACULAR DEGNERATIVE -: TURP -: pelvic sx. - Social History Smoking Status: Unknown if ever smoked Alcohol use: No CD- Drugs: No Caffeine use: Yes Place of Residence: Home Review of Systems General: Weakness Gastrointestinal: Nausea, Vomiting, Abdominal Pain, Distention, Constipation Genitourinary: Dysuria, Hematuria, Retention Neurological: Weakness, Confusion Physical Examination - Physical Exam General: Confused HEENT: Atraumatic, Normocephalic Neck: Supple Respiratory: Clear to auscultation bilaterally, Normal air movement Cardiovascular: No edema, Normal pulses, Regular rate/rhythm Capillary refill: <2 Seconds Gastrointestinal: Hypoactive, Other (+Surgical bandages intact/abdominal binder in place), Distended, Tenderness Musculoskeletal: No clubbing, No swelling Integumentary: No rashes, No breakdown Neurological: Normal speech, Normal strength at 5/5 x4 extr, Normal reflexes 2+ Urinary: Bladder distention, Arteaga catheter (Bloody urine noted in arteaga bag with clear urine draining currently) External genitalia: No edema Rectal: Deferred - Studies Laboratory Data (last 24 hrs) 03/01/25 03/01/25 03/01/25 07:53 07:53 07:53 WBC 14.80 H Hgb 12.0 L D Hct 38.0 L Plt Count 175 PT 12.6 INR 1.12 Sodium 126 L D Potassium 6.7 H* D BUN 46 H Creatinine 3.05 H Glucose 598 H* Magnesium 1.9 Total Bilirubin 1.2 H AST 20 ALT < 14 L Alkaline Phosphatase 73 Lipase 14 Assessment and Plan - Plan Patient is an 84-year-old male with past medical history of hypertension, hyperlipidemia, diabetes type 2, glaucoma, hypothyroidism, BPH and macular degenerative disease who presents to the ED with complaints of abdominal pain with bladder distention and hematuria x 24 hours. Diabetic ketoacidosis - Discussed with ED attending for ICU admission - BG >500 upon arrival to the ED - Lactic 9.8, K+6.7, C02 13, anion gap 31.7 - Continue to monitor BMP/mag/po4 q4h and replete electrolytes as needed - Continue to monitor lactic - IV fluids 0.45NS @250mL/hr for now - Insulin gtt with q1h blood glucose monitoring - A1c ordered, needs follow up - NPO for now Urinary retention Urinary tract infection Hematuria - Arteaga catheter re-placed in the ED, continue with catheter for now - CT abdominal/pelvis completed in ED: Bladder decompressed from Arteaga catheter. Air within the bladder is probably related to instrumentation. - Monitor intake and output closely - Ceftriaxone initiated in the ED, continue for now - UA positive and culture pending, needs follow-up - Blood cultures ordered and pending result S/p Ventral Hernia Repair Constipation - Hernia repair completed on 02/27/[address] Alexander - CT abdomen/pelvis with no acute postoperative changes - Morphine 0.5mg q4h PRN for pain control - Suppository daily and IV fluids for now - Monitor closely for bowel movement and add PO regimen once able to tolerate PO Diabetes type 2, chronic - Home med Novolin, held for now as patient is on DKA protocol - Monitor BG closely Hypertension, chronic Hyperlipidemia, chronic - Continue home meds atorvastatin, metoprolol, Irbesartan, and spironolactone once verified and appropriate Hypothyroidism, chronic - Not an active issue at this time - Reports home med levothyroxine daily, continue once verified BPH, Chronic - Reports home med Tamsulosin,continue once verified and appropriate Glaucoma, chronic - Reports home med timolol, continue once verified and appropriate DVT Ppx: SCD's for now due to hematuria GI Ppx: Protonix Code Status: Full Code Discharge Plan: Home Plan to discharge in: Greater than 2 days - Advance Directives Does patient have a Living Will: No Does patient have a Durable POA for Healthcare: No - Code Status/Comfort Care Code Status Assessed: Yes (Full code) Critical Care: Yes Time Spent Managing Pts Care (In Minutes): 42
[2025-03-01] MEDS: INSULIN REGULAR, HUMAN 100 UNIT in NA CHLORIDE 0.9% 100 ML IV SCH (12:00)
[2025-03-01 12:01] LABS: Anion Gap 33.1 mEq/L (5.0-15.0); BUN Blood Urea Nitrogen 47.0 mg/dL (7-18); Magnesium 1.8 mg/dL (1.6-2.4); Potassium 5.1 mEq/L (3.5-5.1)
[2025-03-01 12:05] LABS: Glucose Level 573.0 mg/dL (74-106)
[2025-03-01] MEDS: NACHLORIDE 0.45% 1,000 ML IV SCH (12:36)
[2025-03-01] MEDS: LORazepam 2 MG/ML VIAL IV ONE (14:00)
[2025-03-01] MEDS: LORazepam 2 MG/ML VIAL ONE (14:15)
[2025-03-01] MEDS: ONDANSETRON 4 MG/2 ML VIAL IV PRN (14:15)
[2025-03-01] MEDS: NA CHLORIDE 0.9% 1,000 ML ONE (14:18)
[2025-03-01 16:00] LABS: Anion Gap 20.3 mEq/L (5.0-15.0); BUN Blood Urea Nitrogen 52.0 mg/dL (7-18); Magnesium 1.7 mg/dL (1.6-2.4); Potassium 4.3 mEq/L (3.5-5.1)
[2025-03-01 16:03] LABS: Glucose Level 471.0 mg/dL (74-106)
[2025-03-01] MEDS: GLYCERIN ADULT SUPP PR SCH (17:58)
[2025-03-01 20:01] LABS: Anion Gap 13.6 mEq/L (5.0-15.0); BUN Blood Urea Nitrogen 51.0 mg/dL (7-18); Glucose Level 303.0 mg/dL (74-106); Magnesium 1.9 mg/dL (1.6-2.4); Potassium 3.6 mEq/L (3.5-5.1)
[2025-03-01] MEDS: MORPHINE 2 MG/ML SYR IV PRN (21:01)
[2025-03-01] MEDS: D5W 1,000 ML IV SCH (22:07)
[2025-03-01] MEDS: ALBUMIN HUMAN 25% 200 ML IV ONE (23:49)
[2025-03-02 00:25] LABS: Anion Gap 10.9 mEq/L (5.0-15.0); BUN Blood Urea Nitrogen 50.0 mg/dL (7-18); Potassium 3.9 mEq/L (3.5-5.1)
[2025-03-02 00:29] LABS: Glucose Level 51.0 mg/dL (74-106)
[2025-03-02] MEDS: D50W 25 GM/50 ML SYRINGE IV PRN ×2 (01:32→23:16)
[2025-03-02] MEDS: LORazepam 2 MG/ML VIAL IV ONE ×3 (03:09→12:14)
[2025-03-02 05:31] LABS: Absolute Lymphocytes (CBC) 0.9 K/uL (0.7-4.9); Hematocrit 29.3 % (39.6-49.0); Hemoglobin 10.0 g/dL (13.6-17.9); MCH 32.4 pg (27.0-35.0); MCHC 34.1 g/dL (32.0-36.0); MCV 94.9 fL (80-100); MPV 8.2 fL (7.6-11.3); Nucleated RBC Absolute Count 0.0 (0-0); Nucleated Red Blood Cells % 0.1 % (0-0); RBC Red Blood Cell Count 3.09 M/uL (4.33-5.43); White Blood Count 11.60 thou/uL (4.3-10.9)
[2025-03-02 05:50] LABS: Magnesium 1.6 mg/dL (1.6-2.4)
[2025-03-02 06:18] LABS: BUN Blood Urea Nitrogen 48.0 mg/dL (7-18); Glucose Level 110.0 mg/dL (74-106); Potassium 3.5 mEq/L (3.5-5.1)
[2025-03-02] MEDS ORDERED: GLUCAGON 1 MG/VIAL IM PRN (07:19)
[2025-03-02] MEDS: NACHLORIDE 0.45% 1,000 ML IV SCH (07:23)
[2025-03-02] MEDS: INSULIN REGULAR (HUMAN) 100 UNIT/ML SQ SCH (07:30)
[2025-03-02 08:15] LABS: Anion Gap 11.5 mEq/L (5.0-15.0)
[2025-03-02] MEDS: DOCUSATE NA/SENNA CONC 1 TAB PO SCH (08:48)
[2025-03-02] MEDS: CEFTRIAXONE 1,000 MG in NA CHLORIDE 0.9% 50 ML IVPB SCH (08:49)
[2025-03-02] MEDS: INSULIN NPH (HUMAN) 100 UNITS/ML SQ SCH (08:49)
[2025-03-02] MEDS ORDERED: ALBUTEROL 2.5 MG/3 ML NEB SOL NEB PRN (09:46)
--- NOTE | 2025-03-02 09:55 | P.PN ---
Subjective Date of Service: 03/02/25 Chief Complaint: DKA/Urinary Retention Subjective: No new changes, Improving Patient was examined while resting in bed. Patient states that he does not know where he is at and that he is stuck in the bed. Updated patient on his current location and current plan of care. Discussed plan of care with bedside RN who reported patient having blood sugar in the 40s overnight and insulin drip has now been discontinued. Discussed starting long-acting insulin and diet at this time. Review of Systems General: Weakness Neurological: Confusion Physical Examination - Vital Signs Temperature: 100.0 F Blood Pressure: 119/51 Pulse: 72 Respirations: 20 Pulse Ox (%): 98 - Physical Exam General: Cooperative, Confused HEENT: Atraumatic, PERRLA, EOMI Neck: Supple Respiratory: Clear to auscultation bilaterally, Normal air movement Cardiovascular: Regular rate/rhythm, Normal S1 S2 Capillary refill: <2 Seconds Gastrointestinal: Normal bowel sounds, Non-distended, Tenderness (surgical incisions without s/s of infection ) Musculoskeletal: No tenderness Integumentary: No rashes Neurological: Normal speech, Abnormal affect Urinary: Haley catheter External genitalia: No edema Rectal: Deferred Assessment And Plan - Plan Patient is an 84-year-old male with past medical history of hypertension, hyperlipidemia, diabetes type 2, glaucoma, hypothyroidism, BPH and macular degenerative disease who presents to the ED with complaints of abdominal pain with bladder distention and hematuria x 24 hours. Diabetic ketoacidosis - Continue with ICU level of care for now - BG >500 upon arrival to the ED - Initial Lactic 9.8, K+6.7, C02 13, anion gap 31.7, trending down - Continue to monitor BMP/mag/po4 q4h and replete electrolytes as needed - Continue to monitor lactic - Continue IV fluids 0.45NS at 125mL/hr - Insulin gtt completed and patient transitioned to long acting with moderate sliding scale - A1c 9.0% completed on 03/01 - Diet started 03/02 breakfast Urinary retention Urinary tract infection Hematuria - Patient was seen at [facility] and Urology placed coude cath for obstruction with c/f bladder neck contracture and patient was to f/u with Urology and maintain Haley cath - Continue with catheter for now and recommend discharging with catheter and outpatient Urology follow up - CT abdominal/pelvis completed in ED: Bladder decompressed from Haley catheter. Air within the bladder is probably related to instrumentation. - Monitor intake and output closely - Ceftriaxone initiated in the ED, continue for now - WBC trending down 14.8 < 11.6, continue to trend - UA positive and culture pending, needs follow-up - Blood cultures ordered and pending result Acute metabolic encephalopathy - Most likely secondary to above - Frequent re-orientation - Continue IV fluids and Abx at this time - Fall risk precautions - CT head/brain wo ordered, needs follow up - Bed side swallow prior to administering PO intake S/p Ventral Hernia Repair Constipation - Hernia repair completed on 02/27/[address] Alexander - 03/01: Patient was evaluated by Dr. Alexander and no postoperative complication concerns at this time - CT abdomen/pelvis with no acute postoperative changes - Morphine 0.5mg q4h PRN for pain control - Suppository daily, IV fluids, and BID senna for now - Monitor closely for bowel movement Diabetes type 2, chronic - Home med Novolin with 27units daily. 10 units started on 03/02 - Monitor BG closely - Carb controlled diet Hypertension, chronic Hyperlipidemia, chronic - Patient currently with soft pressures, monitor BP closely - Continue home meds atorvastatin - Hold home meds metoprolol, Irbesartan, and spironolactone for now and restart once appropriate Hypothyroidism, chronic - Not an active issue at this time - Reports home med levothyroxine daily, continue BPH, Chronic - Reports home med Tamsulosin,continue Glaucoma, chronic - Reports home med timolol, continue DVT Ppx: SCD's for now due to hematuria Code Status: Full Code Discharge Plan: Home Plan to discharge in: 48 Hours - Code Status/Comfort Care Code Status Assessed: Yes (Full Code) Critical Care: Yes
[2025-03-02 11:38] VITALS: BMI 27.5
--- NOTE | 2025-03-02 13:50 | RAD REPORT ---
EXAM: CT Head Brain Wo Cont HISTORY: AMS COMPARISON: None TECHNIQUE: Multiple contiguous axial images were obtained for a CT of the brain without contrast. Sag ittal and coronal reformats were performed. One or more of the following dose reduction techniques were used: Automated exposure control, adjus tment of the mA and kV according to patient size, and iterative reconstruction. Unless otherwise specified, incidental findings do not require dedicated imaging follow-up. FINDINGS: No evidence of hydrocephalus, intracranial hemorrhage, or extra-axial fluid collection. The brain is normal in morphology. The calvarium is intact. The visualized paranasal sinuses and mastoid air cells are essentially clear . IMPRESSION: No evidence of acute intracranial abnormality.
[2025-03-02] MEDS: D5 0.45 NS 1,000 ML IV ONE (16:04)
[2025-03-02] MEDS: D5 0.45 NS 1,000 ML IV SCH (16:10)
[2025-03-02] MEDS: MAGNESIUM SULFATE 1 gm IVPB 1 GM/100 ML BAG IV ONE (16:28)
[2025-03-02] MEDS: Magnesium Sulfate 2gm IVPB 2 G/50 ML BAG IV ONE (16:58)
[2025-03-02] MEDS: KCL 20 MEQ/100 mL IVPB 20 MEQ/100 ML BAG IV ONE (16:58)
[2025-03-02] MEDS: NA CHLORIDE 0.9% 100 ML ONE (20:11)
[2025-03-02] MEDS: DEXMEDETOMIDINE HCL 200 MCG/2 ML VIAL ONE (20:12)
[2025-03-02] MEDS: DEXMEDETOMIDINE HCL 200 MCG in NA CHLORIDE 0.9% 98 ML IV SCH (20:14)
[2025-03-02] MEDS: TAMSULOSIN 0.4 MG SR CAP PO SCH (20:18)
[2025-03-02] MEDS: TIMOLOL MALEATE 0.5% OPTH 5 ML BTL *PT OWN MED OPTH SCH (20:18)
[2025-03-02] MEDS: QUETIAPINE 25 MG TAB PO SCH (20:19)
--- NOTE | 2025-03-02 21:54 | P.PN ---
Date of Service: 03/02/25 Patient nurse called and informed me of patient agitation, combativeness, confusion, attempting to pull out his Haley catheter, and to get out of bed despite the use of wrist restraint, patient received Ativan during the day shift with no positive effect, and appears to have made patient mentation worsening according to the significant other present at the bedside. I immediately went and assessed the patient, he was shouting, complete disoriented, made several attempts to pull out his Haley catheter which was bleeding from prior attempt to pull it out, attempting to get out of bed, tachypneic from severe agitation, combativeness, and will not take anything p.o. spitting it out. Safety been the concern, to prevent patient from causing harm or injury to himself, and to the nurses, ordered Precedex low-dose infusion, also order CPAP, patient has severe sleep apnea. Continue to monitor and to reevaluate patient condition. The goal is to DC Precedex when patient is able to get some sleep and rest.
[2025-03-02 23:51] LABS: Anion Gap 6.8 mEq/L (5.0-15.0); BUN Blood Urea Nitrogen 31.0 mg/dL (7-18); Glucose Level 128.0 mg/dL (74-106); Magnesium 2.2 mg/dL (1.6-2.4); Potassium 3.8 mEq/L (3.5-5.1)
[2025-03-03] MEDS: KCL 20 MEQ/100 mL IVPB 20 MEQ/100 ML BAG IV ONE (00:15)
[2025-03-03 05:35] LABS: Absolute Lymphocytes (CBC) 0.7 K/uL (0.7-4.9); Hematocrit 32.6 % (39.6-49.0); Hemoglobin 10.9 g/dL (13.6-17.9); MCH 32.1 pg (27.0-35.0); MCHC 33.5 g/dL (32.0-36.0); MCV 95.7 fL (80-100); MPV 8.2 fL (7.6-11.3); Nucleated RBC Absolute Count 0.0 (0-0); Nucleated Red Blood Cells % 0.0 % (0-0); RBC Red Blood Cell Count 3.41 M/uL (4.33-5.43); White Blood Count 7.80 thou/uL (4.3-10.9)
[2025-03-03 05:53] LABS: ALT/SGPT 23.0 U/L (16-61); AST/SGOT 76.0 U/L (15-37); Albumin 2.7 g/dL (3.4-5.0); Albumin/Globulin Ratio 0.9 (1.1-1.8); Alkaline Phosphatase 52.0 U/L (45-117); Anion Gap 8.1 mEq/L (5.0-15.0); BUN Blood Urea Nitrogen 28.0 mg/dL (7-18); Globulin 3.0 g/dL (2.3-3.5); Glucose Level 113.0 mg/dL (74-106); Magnesium 2.3 mg/dL (1.6-2.4); Potassium 4.1 mEq/L (3.5-5.1)
[2025-03-03] MEDS: LEVOTHYROXINE SOD 0.125 MG TAB PO SCH (06:00)
--- NOTE | 2025-03-03 06:36 | P.PN ---
Subjective Date of Service: 03/03/25 Chief Complaint: DKA/Urinary Retention Subjective: Improving, New changes Patient was examined while resting in bed. Patient had extreme agitation and was combative overnight. Placed on Precedex gtt and CPAP for suspected sleep apnea. Discussed with bedside RN to wean Precedex and discontinue BiPAP use once patient is awake. Encourage p.o. intake with improved mentation and start low- dose sliding scale with discontinuance of IV fluids. Review of Systems 10-point ROS is otherwise unremarkable Neurological: Confusion Physical Examination - Vital Signs Temperature: 97.1 F Blood Pressure: 176/62 Pulse: 59 Respirations: 17 Pulse Ox (%): 100 - Physical Exam General: Confused (Following commands) HEENT: Atraumatic, PERRLA, EOMI Neck: Supple Respiratory: Diminished Cardiovascular: Normal pulses, Regular rate/rhythm Capillary refill: <2 Seconds Gastrointestinal: Hypoactive Musculoskeletal: No tenderness Integumentary: No rashes External genitalia: Deferred Rectal: Deferred Assessment And Plan - Plan Patient is an 84-year-old male with past medical history of hypertension, hyperlipidemia, diabetes type 2, glaucoma, hypothyroidism, BPH and macular degenerative disease who presents to the ED with complaints of abdominal pain with bladder distention and hematuria x 24 hours. Diabetic ketoacidosis, resolved - Continue with ICU level of care for now - BG >500 upon arrival to the ED - Initial Lactic 9.8, K+6.7, C02 13, anion gap 31.7, trended down - Continue to monitor BMP/mag/po4 q4h and replete electrolytes as needed - lactic trended down to 1.5 - Insulin gtt completed and patient transitioned to long acting with moderate sliding scale - A1c 9.0% completed on 03/01 - Diet started 03/02 breakfast, however patient eating minimal and placed back on d51/2NS Urinary retention Urinary tract infection Hematuria Acute Kidney Injury,resolved - Patient was seen at [facility] and Urology placed coude cath for obstruction with c/f bladder neck contracture and patient was to f/u with Urology and maintain Haley cath - Continue with catheter for now and recommend discharging with catheter and outpatient Urology follow up - CT abdominal/pelvis completed in ED: Bladder decompressed from Haley catheter. Air within the bladder is probably related to instrumentation. - Monitor intake and output closely - Ceftriaxone initiated in the ED, continue for now - WBC trending down 14.8 < 7.8 - Creatinine trended down; 3.62 >1.25 - UA positive and culture without growth - Blood cultures likely a contaminant/positive for staph epidermidis, continue current antibiotics as patient is showing improvement at this time Acute metabolic encephalopathy - Most likely secondary to above - Frequent re-orientation - Continue IV fluids and Abx at this time - Fall risk precautions - Precedex started overnight on 03/03, however weaned off in a.m., may restart if patient becomes severely agitated - CT head/brain wo ordered, needs follow up - Bed side swallow prior to administering PO intake S/p Ventral Hernia Repair Constipation - Hernia repair completed on 02/27/[address] Alexander - 03/01: Patient was evaluated by Dr. Alexander and no postoperative complication concerns at this time - CT abdomen/pelvis with no acute postoperative changes - Morphine 0.5mg q4h PRN for pain control - Suppository daily, IV fluids, and BID senna for now - Consider Reglan if patient continues to refuse or is unable to take p.o. intake - Monitor closely for bowel movement Diabetes type 2, chronic Hypoglycemia - Home med Novolin with 27units daily. 10 units started on 03/02, however patient had hypoglycemic episode - 03/03: Hold long acting for now and start mild sliding scale - IV fluids d51/2NS @75mL/hr, discontinued on 03/03 - Monitor BG closely - Carb controlled diet, encourage oral intake Hypertension, chronic Hyperlipidemia, chronic - Continue to monitor BP closely - Continue home med atorvastatin - Hold home meds metoprolol, Irbesartan, and and HCTZ - Restarted spironolactone on 03/03, continue to restart home meds as appropriate Hypothyroidism, chronic - Not an active issue at this time - Reports home med levothyroxine daily, continue BPH, Chronic - Reports home med Tamsulosin,continue Glaucoma, chronic - Reports home med timolol, continue Suspected Sleep Apnea - Placed on BIPAP overnight on 03/02 - Continue CPAP/BIPAP at night - Recommend sleep study outpatient DVT Ppx: SCD's for now due to hematuria Code Status: Full Code Discharge Plan: [facility] Plan to discharge in: Greater than 2 days - Code Status/Comfort Care Code Status Assessed: Yes (Full Code) Critical Care: Yes
--- NOTE | 2025-03-03 07:02 | RAD REPORT ---
EXAMINATION: ONE VIEW CHEST XR CLINICAL INDICATION: Routine evaluation TECHNIQUE: Frontal chest projection is submitted. Examination is limited by patient positioning and t echnique. COMPARISON: 02/28/2025 FINDINGS: Bilateral pulmonary opacities are present likely representing edema. Trace pleural fluid bilaterally. The heart is upper limit of normal in size. Sternotomy wires present. IMPRESSION: Mild CHF is possible.
[2025-03-03] MEDS ORDERED: INSULIN NPH (HUMAN) 100 UNITS/ML SQ SCH (08:00)
[2025-03-03 09:02] VITALS: O2SAT 100
[2025-03-03] MEDS: SPIRONOLACTONE 25 MG TABLET PO SCH (09:15)
[2025-03-03] MEDS: INSULIN REGULAR (HUMAN) 100 UNIT/ML SQ SCH (11:30)
[2025-03-03] MEDS: VALSARTAN 80 MG TAB PO SCH (12:08)
[2025-03-03] MEDS: MONTELUKAST 10 MG TAB PO SCH (12:09)
[2025-03-03] MEDS: ASPIRIN EC 81 MG TAB PO SCH (12:10)
[2025-03-03 12:17] LABS: Anion Gap 9.2 mEq/L (5.0-15.0); BUN Blood Urea Nitrogen 25.0 mg/dL (7-18); Glucose Level 191.0 mg/dL (74-106); Magnesium 2.2 mg/dL (1.6-2.4); Potassium 4.2 mEq/L (3.5-5.1)
[2025-03-03] MEDS: PHENOL 1.4% ORAL SPRAY 180ML MM PRN (16:58)
[2025-03-03] MEDS: ATORVASTATIN 40 MG TAB PO SCH (19:52)
[2025-03-03] MEDS: METOPROLOL TAR 25 MG TAB PO SCH (19:53)
[2025-03-03] MEDS: INSULIN GLARGINE 100 UNIT/ML SQ SCH (20:19)
[2025-03-03] MEDS ORDERED: IRBESARTAN 150 MG PO SCH (21:00)
[2025-03-04] MEDS: HALOPERIDOL LACT 5 MG/ML INJ ONE (00:19)
[2025-03-04] MEDS: HALOPERIDOL LACT 5 MG/ML INJ IM STA (00:23)
[2025-03-04] MEDS: NA CHLORIDE 0.9% 100 ML ONE (00:54)
[2025-03-04] MEDS: DEXMEDETOMIDINE HCL 200 MCG/2 ML VIAL ONE (00:55)
[2025-03-04 06:59] LABS: Absolute Lymphocytes (CBC) 0.6 K/uL (0.7-4.9); Hematocrit 34.7 % (39.6-49.0); Hemoglobin 11.9 g/dL (13.6-17.9); MCH 32.4 pg (27.0-35.0); MCHC 34.2 g/dL (32.0-36.0); MCV 94.7 fL (80-100); MPV 8.2 fL (7.6-11.3); Nucleated RBC Absolute Count 0.0 (0-0); Nucleated Red Blood Cells % 0.1 % (0-0); RBC Red Blood Cell Count 3.66 M/uL (4.33-5.43); White Blood Count 5.50 thou/uL (4.3-10.9)
[2025-03-04 07:13] LABS: Anion Gap 7.1 mEq/L (5.0-15.0); BUN Blood Urea Nitrogen 17.0 mg/dL (7-18); Glucose Level 238.0 mg/dL (74-106); Magnesium 1.9 mg/dL (1.6-2.4); Potassium 4.1 mEq/L (3.5-5.1)
[2025-03-04] MEDS: SODIUM PHOSPHATE 15 MM in NA CHLORIDE 0.9% 250 ML IV ONE (08:14)
--- NOTE | 2025-03-04 10:44 | P.PN ---
Date of Service: 03/04/25 Subjective Date of Service: 03/04/25 Chief Complaint: DKA/Urinary Retention Subjective: Improving Patient was examined while resting in bed. Patient had extreme agitation and was combative overnight. Placed on Precedex gtt again, however weaned off early in the morning. Discussed with bedside RN plans for PT/OT evaluations, EKG, and to monitor blood glucose closely. Discussed addressing pain control during the evening and utilization of CPAP for sleep apnea. Review of Systems 10-point ROS is otherwise unremarkable Neurological: Confusion, improving Physical Examination - Physical Exam General: Confused (Following commands) HEENT: Atraumatic, PERRLA, EOMI Neck: Supple Respiratory: Diminished Cardiovascular: Normal pulses, Regular rate/rhythm Capillary refill: <2 Seconds Gastrointestinal: Hypoactive Musculoskeletal: No tenderness Integumentary: No rashes External genitalia: Deferred Rectal: Deferred Assessment And Plan - Plan Patient is an 84-year-old male with past medical history of hypertension, hyperlipidemia, diabetes type 2, glaucoma, hypothyroidism, BPH and macular degenerative disease who presents to the ED with complaints of abdominal pain with bladder distention and hematuria x 24 hours. Diabetic ketoacidosis, resolved - Continue with ICU level of care for now - BG >500 upon arrival to the ED - Initial Lactic 9.8, K+6.7, C02 13, anion gap 31.7, trended down - Continue to monitor BMP/mag/po4 q4h and replete electrolytes as needed - lactic trended down to 1.5 - Insulin gtt completed and patient transitioned to long acting with moderate sliding scale - A1c 9.0% completed on 03/01 - Diet started 03/02 breakfast Urinary retention Urinary tract infection Hematuria Acute Kidney Injury,resolved - Patient was seen at [facility] and Urology placed coude cath for obstruction with c/f bladder neck contracture and patient was to f/u with Urology and maintain Haley cath - Continue with catheter for now and recommend discharging with catheter and outpatient Urology follow up - CT abdominal/pelvis completed in ED: Bladder decompressed from Haley catheter. Air within the bladder is probably related to instrumentation. - Monitor intake and output closely - Ceftriaxone initiated in the ED, continue for now - WBC trending down 14.8 < 7.8 - Creatinine trended down; 3.62 >1.02 - UA positive and culture without growth - Blood cultures likely a contaminant/positive for staph epidermidis, continue current antibiotics as patient is showing improvement at this time. Repeat BC ordered and needs f/u Acute metabolic encephalopathy Hospital Delirium with Agitation - Most likely secondary to above - Frequent re-orientation - Continue IV Abx at this time - Seroquel scheduled for bedtime - Ammonia ordered, needs f/u - Fall risk precautions - Precedex started overnight on 03/03 and 03/04, however weaned off in a.m., may restart if patient becomes severely agitated - CT head/brain wo ordered; negative - Passed Bed side swallow - PT/OT consults ordered, appreciate recs S/p Ventral Hernia Repair Constipation - Hernia repair completed on 02/27/[address] Alexander - 03/01: Patient was evaluated by Dr. Alexander and no postoperative complication concerns at this time - CT abdomen/pelvis with no acute postoperative changes - Morphine 0.5mg q4h PRN for pain control - Suppository daily, IV fluids, and BID senna for now - Consider Reglan if patient continues to refuse or is unable to take p.o. intake - Monitor closely for bowel movement Diabetes type 2, chronic Hypoglycemia - Home med Novolin with 27units daily. 10 units started on 03/02, however patient had hypoglycemic episode - 03/04: Long acting started at 5u BID for now as patient went hypoglycemic after 10units in AM previous start - IV fluids d51/2NS @75mL/hr, discontinued on 03/03 - Monitor BG closely - Carb controlled diet, encourage oral intake Hypertension, chronic Hyperlipidemia, chronic - Continue to monitor BP closely - Continue home med atorvastatin - Continue home meds metoprolol, Irbesartan, HCTZ and spironolactone Hypothyroidism, chronic - Not an active issue at this time - Reports home med levothyroxine daily, continue BPH, Chronic - Reports home med Tamsulosin,continue Glaucoma, chronic - Reports home med timolol, continue Suspected Sleep Apnea - Placed on BIPAP overnight on 03/02 - Continue CPAP/BIPAP at night - Recommend sleep study outpatient DVT Ppx: SCD's for now Code Status: Full Code Discharge Plan: [facility] Plan to discharge in: Greater than 2 days - Code Status/Comfort Care Code Status Assessed: Yes (Full Code) Critical Care: Yes CC Time spent; 33 mins
[2025-03-04] MEDS: ENOXAPARIN 80 MG/0.8 ML SQ SCH (12:52)
[2025-03-04] MEDS: INSULIN GLARGINE 100 UNIT/ML SQ SCH ×2 (13:35→20:17)
[2025-03-04 14:07] LABS: Base Excess, VBG 7.0 mmol/L (-2.0-3.0); HCO3, Venous Blood Gas 31.2 mmol/L (21.0-29.0); O2 Saturation, VBG 93.7 % (40.0-70.0); PCO2, Venous Blood Gas 46 mmHg (41-51); PH, Venous Blood Gas 7.44 (7.32-7.42); PO2, Venous Blood Gas 67 mmHg (25-40)
[2025-03-04] MEDS: METOPROLOL TAR 25 MG TAB PO SCH (17:01)
--- NOTE | 2025-03-04 17:38 | RAD REPORT ---
EXAMINATION: US BILATERAL LOWER EXTREMITY VENOUS DOPPLER CLINICAL INDICATION: R/o DVT TECHNIQUE: Complete bilateral duplex sonography of the BILATERAL lower extremity veins was performed. The examination included compression for vein patency, color Doppler imaging and flow augmentation in response to distal compression of the distal external iliac, common femoral, femoral, popliteal, t ibial, and great and small saphenous veins. COMPARISON: No prior exam. FINDINGS: Duplex sonography testing of the veins of the BILATERAL lower extremity was performed. Color flow rin ging shows all veins to be compressible with [id number] color filling. Pulsatile and phasic flow is present within all lower extremity deep and superficial veins examined. IMPRESSION: There is no deep vein or superficial vein thrombosis.
[2025-03-04] MEDS: QUETIAPINE 25 MG TAB PO ONE (18:39)
[2025-03-04] MEDS: MORPHINE 4 MG/ML SYR IV ONE (20:06)
[2025-03-05] MEDS: MORPHINE 4 MG/ML SYR ONE (02:20)
[2025-03-05] MEDS ORDERED: METOCLOPRAMIDE 10 MG/2mL INJ IV PRN (07:50)
[2025-03-05 08:42] LABS: Absolute Lymphocytes (CBC) 0.9 K/uL (0.7-4.9); Hematocrit 33.5 % (39.6-49.0); Hemoglobin 11.1 g/dL (13.6-17.9); MCH 31.6 pg (27.0-35.0); MCHC 33.2 g/dL (32.0-36.0); MCV 95.2 fL (80-100); MPV 8.0 fL (7.6-11.3); Nucleated RBC Absolute Count 0.0 (0-0); Nucleated Red Blood Cells % 0.1 % (0-0); RBC Red Blood Cell Count 3.51 M/uL (4.33-5.43); White Blood Count 6.50 thou/uL (4.3-10.9)
[2025-03-05 08:50] LABS: PT Prothrombin Time 12.9 SECONDS (10-13.0); Protime INR 1.15
[2025-03-05 09:03] LABS: ALT/SGPT 25.0 U/L (16-61); AST/SGOT 36.0 U/L (15-37); Albumin 2.6 g/dL (3.4-5.0); Albumin/Globulin Ratio 0.8 (1.1-1.8); Alkaline Phosphatase 64.0 U/L (45-117); Anion Gap 8.9 mEq/L (5.0-15.0); BUN Blood Urea Nitrogen 16.0 mg/dL (7-18); Globulin 3.1 g/dL (2.3-3.5); Glucose Level 202.0 mg/dL (74-106); Magnesium 1.8 mg/dL (1.6-2.4); Potassium 3.9 mEq/L (3.5-5.1)
[2025-03-05 09:34] LABS: Differential Total Cells Count 100; Segmented Neutrophils 66 % (40-80)
[2025-03-05 09:35] LABS: Blood Morphology Comment NOT SEEN (NOT SEEN); Platelets, Giant PRESENT
--- NOTE | 2025-03-05 09:57 | RAD REPORT ---
EXAMINATION: CT ABDOMEN AND PELVIS WITHOUT CONTRAST CLINICAL INDICATION: hematuria TECHNIQUE: CT abdomen and pelvis was performed, without IV contrast, as per department protocol. Axia l, sagittal and coronal reconstructions were obtained. One or more of the following dose reduction techniques were used: Automated exposure control, adjustment of the mA and kV according to the patien t size, and iterative reconstruction. Unless otherwise specified, incidental findings do not require dedicated imaging follow-up. COMPARISON: 03/01/2025 FINDINGS: The lack of intravenous contrast limits the sensitivity of this exam for evaluation of solid visceral organs, vascular structures, and retroperitoneum. LOWER CHEST: There is linear atelectasis in both lung bases. Small right pleural effusion. Small hiat al hernia. LIVER:Subtle nodular contour effects the liver particularly the left lobe suggesting early/mild cirrh osis. Grossly unremarkable gallbladder. SPLEEN: Normal size. No focal lesion. Mild fluid is seen posterior to the spleen. PANCREAS: No mass, ductal dilation, or megha-pancreatic fluid. ADRENALS: Normal; no mass. KIDNEYS AND URETERS: Normal size and contour. No hydronephrosis. URINARY BLADDER: Decompressed by means of Haley catheter. GASTROINTESTINAL TRACT: No evidence of bowel obstruction, significant free fluid, free air or abscess . Small skin terri are noted near the umbilicus. Prominent sigmoid diverticulosis coli without diverticulitis. APPENDIX: Normal appendix. LYMPH NODES: No lymphadenopathy. MUSCULOSKELETAL: SI joint hardware is present. Moderate lower lumbar degenerative changes. ADDITIONAL FINDINGS: Large irregular somewhat peripherally hyperdense collection/lesion has developed with internal hypodensity in the right rectus sheath stranding inferiorly to the right inguinal region. Maximally this measures 9.2 x 8.6 cm. This is favored to be a rectus sheath hematoma as there is some evidence of blood product extending into the right pelvic fat as well. Sterility of this is indeterminate. IMPRESSION: Interval development of a large rectus sheath hematoma suspected, measuring maximally 9.2 x 8.6 cm, e xtending into the anterior lateral aspect of the pelvis. Sterility is indeterminate. Urinary bladder decompressed by Haley catheter.
[2025-03-05] MEDS: SOTALOL HCL 80 MG TAB PO SCH (10:20)
--- NOTE | 2025-03-05 10:36 | P.CNS ---
Date of Consult: 03/05/25 Chief Complaint: DKA/Urinary Retention History of Present Illness: Patient with PMH of HTN, recent abdominal hernia repair surgery, presented with urinary retention, agitation, cardiology were consulted as patient went into AF RVR, patient denies chest pain, no palpitations, no syncope. Allergies No Known Allergies Allergy (Verified 02/27/25 07:54) Home medications list reviewed: Yes Home Medications: Albuterol Neb [Proventil 0.083% Neb Soln] 2.5 mg IH Q4HP PRN 02/13/25 Aspirin [Aspirin EC 81 MG] 81 mg PO DAILY 02/13/25 Atorvastatin Calcium 40 mg PO DAILY 02/13/25 Fluoride (Sodium) [Prevident] 1 appl DT BEDTIME 02/13/25 Insulin NPH Human [Novolin N (Humulin N)*] 27 units SQ DAILY 02/13/25 Insulin Regular, Human [Novolin R] 12 unit SQ AC PRN 02/13/25 Irbesartan 150 mg PO BEDTIME 02/13/25 Levothyroxine [Synthroid] 125 mcg PO [id number] 02/13/25 Magnesium Oxide [Magnesium] 400 mg PO BEDTIME 02/13/25 Melatonin 10 mg PO BEDTIME 02/13/25 Metoprolol Tartrate [Lopressor] 25 mg PO BID 02/13/25 Montelukast [Singulair] 10 mg PO DAILY 02/13/25 Spironolactone [Aldactone] 25 mg PO DAILY 02/13/25 Tamsulosin HCl 0.4 mg PO BEDTIME 02/13/25 Timolol 0.5% Opth [Timoptic 0.5% Opth*] 1 drops LEFT EYE BID 02/13/25 Triamcin 0.1% [Kenalog Lotion 0.1%] 1 appl TOP BIDP PRN 02/13/25 Vit C/E/Zn/Coppr/Lutein/Zeaxan [Preservision Areds 2 Softgel] 1 each PO DAILY 02/13/25 Vitamin D3/Vitamin K2 (Mk4) [K2 Plus D3 Tablet] 1 each PO DAILY 02/13/25 hydroCHLOROthiazide [Hydrochlorothiazide*] 12.5 mg PO BID 02/13/25 Codeine/APAP [Tylenol W/Codeine #3 tab] 1 tab PO Q6HP PRN #1 tab 02/27/25 - Past Medical/Surgical History Diabetic: No -: HTN -: hyperlipidemia -: IDDM -: GLAUCOMA -: HYPOTHROIDISM, -: BPH -: CARDIAC STENT -: MACULAR DEGNERATIVE -: TURP -: pelvic sx. - Social History Smoking Status: Unknown if ever smoked Alcohol use: No CD- Drugs: No Caffeine use: Yes Place of Residence: Home Review of Systems 10-point ROS is otherwise unremarkable Physical Examination Temp Pulse Resp BP Pulse Ox 97.8 F 106 H 15 99/63 99 03/05/25 08:00 03/05/25 10:00 03/05/25 10:00 03/05/25 10:00 03/05/25 10:00 General: Alert, In no apparent distress HEENT: Atraumatic, PERRLA, Mucous membr. moist/pink, EOMI, Sclerae nonicteric Neck: Supple, 2+ carotid pulse no bruit, No LAD, Without JVD or thyroid abnormality Respiratory: Clear to auscultation bilaterally, Normal air movement Cardiovascular: Normal S1 S2, Irregular heart rate/rhythm Gastrointestinal: Normal bowel sounds, No tenderness Musculoskeletal: No tenderness Integumentary: No rashes Neurological: Normal gait, Normal speech, Normal tone, Normal affect Lymphatics: No axilla or inguinal lymphadenopathy - Problems (1) Atrial fibrillation Current Visit: Yes Status: Acute Plan: start patient on Sotalol 80 mg po BID, EKG after 3rd dose. continue lopressor 25 mg po BID Continue Lovenox for anticoagulation for now continue to monitor on tele get echo (2) HTN (hypertension) Onset Date: 03/25/17 Current Visit: No Status: Chronic Plan: continue current medications and monitor Qualifiers: Hypertension type: essential hypertension Qualified Code(s): I10 - Essential (primary) hypertension
[2025-03-05] MEDS: GLYCERIN ADULT SUPP PR PRN (12:05)
--- NOTE | 2025-03-05 13:47 | CON ---
Date of Consultation: 03/05/2025 Reason For Service: Rectus hematoma. History Of Present Illness: This is a case of an 84-year-old patient admitted to the hospital few da ys ago with new onset AFib, potassium 6.7. He also has a history of BPH with hematuria and DKA. Let me manage the patient from a medical standpoint. They have to start anticoagulation due to a new on set AFib. He was combative to the point, he has to be restrained for a few days. Hitting, kicking, and then even though several days ago, the CAT scan was negative, today they found a hematoma in the rectus and a surgical consult was obtained since the primary doctors want to continue anticoagulation . The patient is awake, alert, seems to be responding. He is asked me questions right now. In the rectus area, he has small tenderness on the right side, although there is no active bleeding and ther e is no ecchymosis in that region. He is, at this moment I am seeing him right now, calm and talkati ve and he has asked me some very concrete questions. He is hungry. He wants to go home as soon as p ossible, but I explained to him the findings. Allergies: NONE. Medications: Include aspirin. We are trying to put him on Eliquis. He has been on anticoagulation of Lovenox. Past Medical History: Include hypertension, glaucoma, BPH, history of cardiac stent, history of anti coagulation, history of (TURP) transurethral resection of the prostate, pelvic surgery. Social History: He does not smoke. He does not drink alcohol. Review of Systems: At least today, no nausea, no vomiting. He has tenderness in the right rectus area, but no rebound. No guarding. He has no ecchymosis present. No open wounds, discharge. The previous incision is he aling well with no cellulitis present and no redness. Physical Examination: Vital Signs: Show temperature 96.8, pulse is 98, blood pressure is 135/83, O2 sat is 99%. General: The patient is awake, alert. He is oriented x3. He is asking me questions, has been in no distress. HEENT: Pupils are equal and reactive. Anicteric. Neck: Supple. Chest: Clear. Abdomen: Soft and compressible. There is on the right medial rectus sheath, a small lump present co nsistent with a hematoma found in the CAT scan, although there are no open wounds and there is no ecc hymosis on the skin present. The rest of the abdomen is soft and depressible with bowel sounds posit venice. Rectal: Deferred. Genitalia: They just changed Haley in him. Extremities: Good capillary refill. Laboratory Data: WBC count is 6.8, hemoglobin is 11.1, platelets of 159. INR is 1.15. Potassium 3. 9, glucose 303. Lipase 0.8. Once again, creatinine is 1.1. A CAT scan done on admission that was s everal days ago, which is the 10th showed no acute intraabdominal problems, but on the CAT scan done 5 days later now, we noticed the patient to have a hematoma in the rectus muscle. No IV contrast. N o evidence of bowel obstruction. No free air. No abscess. Prominent diverticulosis coli. No signi ficant free fluid. Normal appendix. Assessment: This is an 84-year-old patient on anticoagulation for atrial fibrillation and now he has this new finding, just started to have pain in the last few hours and the CAT scan was done. He has been restrained for the last few days fighting, kicking, trying to get out of bed, lot of straining present, somehow this may be contributed to it. I do not see any free fluid in the abdomen. It is j ust within the rectus muscle itself. Plan: From our standpoint is since they want to give him full anticoagulation, then the question abo ut doing CTA to make sure there is no active bleeding that may be a contraindication to anticoagulati on, although seems to be just contained to the rectus muscle. For that, CTA may have to be done. Ob viously, we have to see the pros and cons of the renal function. Discussed the case with the primary doctor and discussed that with the patient itself and at this moment, there is no contraindication. A CTA could be done. If the CTA shows no active bleeding, then I will have no problem with more ant icoagulation. In the meantime, Lovenox since he is in AFib, I do not think there is any absolute con traindication to it, but before we start the full anticoagulation, a CTA should be done. KARL/JESSE Voice ID: [id number] Report ID: [id number]
--- NOTE | 2025-03-05 14:35 | P.PN ---
Subjective Date of Service: 03/05/25 Chief Complaint: DKA/Urinary Retention Subjective: Tolerating diet, Ambulating, C/O voiced (abd pain and hematuria) Patient was examined while resting in bed. Patient and nurse reports hematuria that started overnight. Patient reports having lower abdominal pain at this time. Discussed plans with bedside RN for CT of abdomen, urology and cardiology consult, holding a.m. dose of Lovenox, and morning labs. Review of Systems 10-point ROS is otherwise unremarkable Gastrointestinal: Abdominal Pain, Distention Genitourinary: Hematuria Physical Examination - Vital Signs Temperature: 96.8 F Blood Pressure: 103/72 Pulse: 96 Respirations: 17 Pulse Ox (%): 100 - Physical Exam General: Alert, In no apparent distress HEENT: Atraumatic, PERRLA, EOMI Neck: Supple Respiratory: Clear to auscultation bilaterally, Normal air movement Cardiovascular: Irregular heart rate/rhythm (afib rate controlled 78-85) Capillary refill: <2 Seconds Gastrointestinal: Normal bowel sounds, Distended, Tenderness Musculoskeletal: No tenderness Integumentary: No rashes Neurological: Normal speech, Normal tone, Normal affect Lymphatics: No axilla or inguinal lymphadenopathy Urinary: Bladder distention, Haley catheter External genitalia: No edema, Tenderness Assessment And Plan - Plan Patient is an 84-year-old male with past medical history of hypertension, hyperlipidemia, diabetes type 2, glaucoma, hypothyroidism, BPH and macular degenerative disease who presents to the ED with complaints of abdominal pain with bladder distention and hematuria x 24 hours. Diabetic ketoacidosis, resolved - Continue with ICU level of care for now - BG >500 upon arrival to the ED - Initial Lactic 9.8, K+6.7, C02 13, anion gap 31.7, trended down - Continue to monitor BMP/mag/po4 q4h and replete electrolytes as needed - lactic trended down to 1.5 - Insulin gtt completed and patient transitioned to long acting with moderate sliding scale - A1c 9.0% completed on 03/01 - Diet started 03/02 breakfast Urinary retention Urinary tract infection Hematuria Acute Kidney Injury,resolved - Patient was seen at [facility] and Urology placed coude cath for obstruction with c/f bladder neck contracture and patient was to f/u with Urology and maintain Haley cath - Continue with catheter for now and recommend discharging with catheter and outpatient Urology follow up - CT abdominal/pelvis completed in ED: Bladder decompressed from Haley catheter. Air within the bladder is probably related to instrumentation. - Monitor intake and output closely - Ceftriaxone initiated in the ED, continue for now - WBC trending down-trended - Creatinine trended down; 3.62 >1.02 - UA positive and culture without growth - Blood cultures likely a contaminant/positive for staph epidermidis, continue current antibiotics as patient is showing improvement at this time. Repeat BC ordered and needs f/u - 03/05: Urology consulted for blocked Haley cath again with hematuria. Catheter unclogged/flushed. Monitor urine output closely and consult urology again if it becomes blocked. Bedside nursing not to remove Haley catheter. Acute metabolic Encephalopathy, improved Hospital Delirium with Agitation, improving - Most likely secondary to above - Frequent re-orientation - Continue IV Abx at this time - Seroquel 50mg PRN for bedtime - Ammonia normal - Fall risk precautions - Precedex started overnight on 03/03 and 03/04, however weaned off in a.m., may restart if patient becomes severely agitated - CT head/brain wo ordered; negative - Passed Bed side swallow - PT/OT consulted, appreciate recs New onset A-fib/flutter - Patient's home dose metoprolol now at full dose of 25 mg twice daily - Cardiology consulted with recommendations for Sotelol 80 mg twice daily and continuance of anticoagulation Lovenox. Also recommendations for EKG to be completed after 3rd dose of Sotelol, will need follow-up - Continue to monitor on telemetry Large rectus sheath hematoma - CT of abdomen completed on 03/05 after complaints of abdominal pain, distention and return of hematuria. Scan showing large rectus sheath hematoma 9.2 x 8.6 cm - Discussed with Dr. Alexander and plans for CTA. Okay to continue with Lovenox for now but hold on transitioning to oral anticoagulation at this time. Patient to wear abdominal binder at all times. - Monitor H&H S/p Ventral Hernia Repair Constipation - Hernia repair completed on 02/27/[address] Alexander - 03/01: Patient was evaluated by Dr. Alexander and no postoperative complication concerns at this time - CT abdomen/pelvis with no acute postoperative changes - Hydrocodone/acetaminophen - Suppository daily, IV fluids, and BID senna for now - Reglan PRN q6h - Last BM 03/04 Diabetes type 2, chronic Hypoglycemia, resolved - Home med Novolin with 27units daily. 10 units started on 03/02, however patient had hypoglycemic episode - 03/05: Long acting increased to 10u in AM and 15u at night - IV fluids d51/2NS @75mL/hr, discontinued on 03/03 - Monitor BG closely - Carb controlled diet, encourage oral intake Hypertension, chronic Hyperlipidemia, chronic - Continue to monitor BP closely - Continue home med atorvastatin - Continue home meds metoprolol, Irbesartan, HCTZ and spironolactone Hypothyroidism, chronic - Not an active issue at this time - Reports home med Levothyroxine daily, continue BPH, Chronic - Reports home med Tamsulosin,continue Glaucoma, chronic - Reports home med timolol, continue Suspected Sleep Apnea - Placed on BIPAP overnight on 03/02 - Continue CPAP/BIPAP at night - Recommend sleep study outpatient Discharge Plan: Home Plan to discharge in: Greater than 2 days - Code Status/Comfort Care Code Status Assessed: Yes (Full code) Critical Care: Yes Time Spent Managing PTS Care (In Minutes): 46
[2025-03-05] MEDS ORDERED: QUETIAPINE 25 MG TAB PO PRN (14:55)
[2025-03-05] MEDS ORDERED: OLANZapine 2.5 MG TAB PO PRN (15:12)
[2025-03-05] MEDS: HYDROCODONE/APAP 10/325 TAB PO PRN (16:19)
[2025-03-05] MEDS ORDERED: ACETAMINOPHEN 500 MG TAB PO PRN (17:52)
[2025-03-05] MEDS: Ringers Lactate 500 ML IV ONE (18:16)
--- NOTE | 2025-03-05 18:53 | P.CNS ---
Date of Consult: 03/05/25 Reason for Consult: Gross hematuria and urinary retention Chief Complaint: DKA/Urinary Retention History of Present Illness: 84-year-old male with past medical history of hypertension, hyperlipidemia, diabetes type 2, glaucoma, hypothyroidism, BPH and macular degenerative disease who presented via the ED with complaints of abdominal pain with bladder distention and hematuria x 24 hours. He underwent ventral hernia repair 02/27/2025. ED workup showed WBC 14.8 potassium 6.7, blood glucose >500, lactic 9.8, CO2 13, and anion gap 31.7. CT abdomen/pelvis was completed with no acute findings. Patient was found to have several blood clots within the bladder and Haley was exchanged while in the ED. Admitted for DKA with UTI/urinary retention. I was consulted by the ICU because despite having the Haley catheter in place, they were performing bladder scans showing progressive retention of urine, and they were having difficulty irrigating the Haley catheter. I saw the patient at bedside who was quite hard of hearing and was unable to provide any significant verifiable history. He did suggest he had had a procedure done on his prostate several years ago, but he could not recall the procedure or the surgeon that performed it. As a result, I simply made an assessment of the current situation. Urethral Haley catheter manipulation and bladder irrigation procedure note: I cleansed away a lot of the blood and clot from around the catheter and his phallus using soap and water and then deflated the catheter balloon, and I advanced a catheter fully into his bladder until it reached the hub of the catheter. The catheter advanced without discomfort experienced by the patient or resistance. I then reinflated the balloon and situated the catheter balloon back at the bladder neck. At this point, I then irrigated his catheter copiously with 1 L of sterile water and sterile saline. I only retrieved a small quantity of formed clot. The urine was otherwise clear yellow. I was even able to fill his bladder with about 200 cc of sterile saline until he experienced sensation of bladder filling, before I then aspirated and decompressed his bladder. The catheter did drain well when it was connected to a floor bag, indicative of adequate positioning and reasonable bladder irrigation. As a result, I resecured the catheter to a StatLock. The nurse subsequently verified that his catheter had been draining much better since the irrigation. Assessment and recommendation: 84-year-old male with past medical history of hypertension, hyperlipidemia, diabetes type 2, glaucoma, hypothyroidism, BPH and macular degenerative disease s/p ventral hernia repair 02/27/2025 with postop urinary retention diagnosed 2 days later, catheter placed, subsequent gross hematuria, incomplete emptying potentially due to clot urinary retention relieved post bladder irrigation. -Given the trauma associated with this most recent postoperative event, recommend he keep the urethral Haley catheter in place for at least the next 10 to 14 days before a voiding trial is arranged in the urology clinic. If he is being discharged with antimicrobials, that will suffice to cover him through the voiding trial. Otherwise, if no antimicrobials are given to him on discharge, prior to the voiding trial in 10 to 14 days, I recommend a catheter culture be obtained so that antimicrobial can be provided to them around the time of voiding trial. This may be done with the medical assistance in the urology clinic. -Subsequent follow-up should be established with me as an outpatient for cystoscopy -PSA about 1 week prior to cystoscopy - Meanwhile, recommend Flomax 0.4 mg daily Allergies No Known Allergies Allergy (Verified 02/27/25 07:54) Home medications list reviewed: Yes Home Medications: Albuterol Neb [Proventil 0.083% Neb Soln] 2.5 mg IH Q4HP PRN 02/13/25 Aspirin [Aspirin EC 81 MG] 81 mg PO DAILY 02/13/25 Atorvastatin Calcium 40 mg PO DAILY 02/13/25 Fluoride (Sodium) [Prevident] 1 appl DT BEDTIME 02/13/25 Insulin NPH Human [Novolin N (Humulin N)*] 27 units SQ DAILY 02/13/25 Insulin Regular, Human [Novolin R] 12 unit SQ AC PRN 02/13/25 Irbesartan 150 mg PO BEDTIME 02/13/25 Levothyroxine [Synthroid] 125 mcg PO [id number] 02/13/25 Magnesium Oxide [Magnesium] 400 mg PO BEDTIME 02/13/25 Melatonin 10 mg PO BEDTIME 02/13/25 Metoprolol Tartrate [Lopressor] 25 mg PO BID 02/13/25 Montelukast [Singulair] 10 mg PO DAILY 02/13/25 Spironolactone [Aldactone] 25 mg PO DAILY 02/13/25 Tamsulosin HCl 0.4 mg PO BEDTIME 02/13/25 Timolol 0.5% Opth [Timoptic 0.5% Opth*] 1 drops LEFT EYE BID 02/13/25 Triamcin 0.1% [Kenalog Lotion 0.1%] 1 appl TOP BIDP PRN 02/13/25 Vit C/E/Zn/Coppr/Lutein/Zeaxan [Preservision Areds 2 Softgel] 1 each PO DAILY 02/13/25 Vitamin D3/Vitamin K2 (Mk4) [K2 Plus D3 Tablet] 1 each PO DAILY 02/13/25 hydroCHLOROthiazide [Hydrochlorothiazide*] 12.5 mg PO BID 02/13/25 Codeine/APAP [Tylenol W/Codeine #3 tab] 1 tab PO Q6HP PRN #1 tab 02/27/25 - Past Medical/Surgical History Diabetic: Yes -: HTN -: hyperlipidemia -: IDDM -: GLAUCOMA -: HYPOTHROIDISM, -: BPH -: CARDIAC STENT -: MACULAR DEGNERATIVE -: TURP -: pelvic sx. - Social History Smoking Status: Unknown if ever smoked Alcohol use: No CD- Drugs: No Caffeine use: Yes Place of Residence: Home Physical Examination Temp Pulse Resp BP Pulse Ox 98.5 F 81 10 L 91/57 L 98 03/05/25 16:00 03/05/25 18:00 03/05/25 18:00 03/05/25 18:00 03/05/25 18:00 - Problems (1) Gross hematuria Current Visit: Yes Status: Acute (2) Clot retention of urine Current Visit: Yes Status: Acute (3) BPH loc w urin obs/LUTS Current Visit: Yes Status: Acute (4) Haley catheter in place Current Visit: Yes Status: Acute Conclusions/Impression: see A&P in HPI Critical Care: Yes Time Spent Managing Pts care (In Minutes): 45
[2025-03-05] MEDS: INSULIN GLARGINE 100 UNIT/ML SQ SCH (21:00)
[2025-03-05] MEDS: HYDROMORPHONE HCL 0.5 MG/0.5 ML INJ IV ONE (21:26)
[2025-03-06 00:14] VITALS: TEMP 97.3
[2025-03-06] MEDS: HYDROMORPHONE HCL 0.5 MG/0.5 ML INJ IV ONE (05:09)
--- NOTE | 2025-03-06 05:16 | RAD REPORT ---
EXAM EXAM DESCRIPTION: CT ANGIO ABD/PELVIS W CONTRAST CLINICAL HISTORY: evaluation of pelvis hematoma COMPARISON: 03/05/2025 TECHNIQUE: CTA of the abdomen and pelvis performed following IV administration of iodinated contras t. 3-D/MIP reformatted images available. This exam was performed according to our departmental dose-optimization program, which includes automated exposure control, adjustment of the mA and/or kV according to patient size and/or use of iterative reconstruction technique. FINDINGS: Lung Bases: Prior median sternotomy. Coronary artery atherosclerosis. Small pleural effusions. Bibasi lar compressive atelectasis. Bones and lower extremity soft tissues: Multilevel endplate spondylosis and facet arthropathy. Modera te to severe disc height narrowing throughout the visualized spine. Left pelvic fixation jessica and sacroiliac fixation screws identified. Osteoarthritic change of the hips. No definite acute fractures identified. CTA: Aorta and Iliac Arteries: Normal caliber abdominal aorta with mild atherosclerotic plaque. There are straight line flow from the aorta into the common and external iliac arteries. The internal iliac arteries are patent. Visceral Arteries: The visceral arteries are widely patent. Renal Arteries: The renal arteries are widely patent. Abdomen: Liver: Nodular contour of the liver. Gallbladder: No calcified gallstones. Spleen, Pancreas, and Adrenal Glands: The spleen, pancreas, and adrenal glands are unremarkable. Kidneys: No hydronephrosis or obstructing calculus. Vasculature: IVC have normal caliber and position. Stomach: Small hiatal hernia. The stomach is not well distended. Other: No free intraperitoneal air. No free fluid or lymphadenopathy. Pelvis: Bladder: Haley catheter in the urinary bladder. Wall thickening and displacement of the urinary glynn dder by the pelvic hematoma. Air in the urinary bladder likely related to catheterization. Bowel: No dilated loops of large or small bowel. Scattered diverticula throughout the colon. Appendix: Normal appendix. Pelvis: Redemonstrated large hematoma in the right pelvis extending into the rectus sheath increased in size from the comparison study. This now measures at least 13.5 x 14.3 x 6.9 cm. There is a faint blush of contrast extravasation identified in this fluid collection on delayed imaging. Prostat e is not definitely enlarged. IMPRESSION: 1. Redemonstrated large hematoma in the right pelvis extending into the rectus sheath increased in size from the comparison study. This now measures at least 13.5 x 14.3 x 6.9 cm, previously measured at 9.2 cm in greatest dimension There is a faint blush of contrast extravasation identified in this fluid collection on delayed imaging. Findings compatible with active bleeding. 2. Wall thickening and displacement of the urinary bladder by the pelvic hematoma. 3. Diverticulosis without evidence of acute diverticulitis. 4. Small pleural effusions with bibasilar compressive atelectasis. 5. Nodular contour of the liver. This could be seen with cirrhosis. Electronically signed by: Blair Riojas DO 03/06/2025 05:10 AM CDT 4ZDM Due to temporary technical issues with the PACS/[employer] reporting system, reports are being prakash d by the in-house radiologist without review as a courtesy to ensure prompt reporting the interpreting radiologist is fully responsible for the content of the report. Transcribed Date/Time: 03/06/2025 5:15 AM
[2025-03-06] MEDS: INSULIN GLARGINE 100 UNIT/ML SQ SCH (05:45)
[2025-03-06] MEDS ORDERED: Phenylephrine HCl 10 MG/ML 1 ML VIAL ONE (06:11)
[2025-03-06] MEDS ORDERED: D5W 250 ML IV ONE (06:12)
[2025-03-06] MEDS ORDERED: NA CHLORIDE 0.9% 500 ML ONE (06:21)
[2025-03-06 06:40] LABS: Absolute Lymphocytes (CBC) 1.0 K/uL (0.7-4.9); Hematocrit 22.3 % (39.6-49.0); Hemoglobin 7.4 g/dL (13.6-17.9); MCH 31.7 pg (27.0-35.0); MCHC 33.0 g/dL (32.0-36.0); MCV 96.1 fL (80-100); MPV 8.7 fL (7.6-11.3); Nucleated RBC Absolute Count 0.0 (0-0); Nucleated Red Blood Cells % 0.0 % (0-0); RBC Red Blood Cell Count 2.33 M/uL (4.33-5.43); White Blood Count 8.80 thou/uL (4.3-10.9)
[2025-03-06] MEDS ORDERED: NA CHLORIDE 0.9% 250 ML ONE (07:00)
[2025-03-06 07:01] LABS: ALT/SGPT 18.0 U/L (16-61); AST/SGOT 29.0 U/L (15-37); Albumin 2.6 g/dL (3.4-5.0); Albumin/Globulin Ratio 0.9 (1.1-1.8); Alkaline Phosphatase 53.0 U/L (45-117); Anion Gap 11.3 mEq/L (5.0-15.0); BUN Blood Urea Nitrogen 27.0 mg/dL (7-18); Globulin 2.8 g/dL (2.3-3.5); Glucose Level 225.0 mg/dL (74-106); Potassium 4.3 mEq/L (3.5-5.1)
[2025-03-06 08:06] VITALS: BP 78/32
[2025-03-06] MEDS ORDERED: BACI/NEOMYCIN/POLY OINT 15GM TOP SCH (09:00)
--- NOTE | 2025-03-06 11:29 | P.DS ---
Admission Date: 03/01/25 Discharge Date: 03/06/25 Disposition: TRANSFER TO [facility] Discharge Condition: CRITICAL Reason for Admission: DKA/Urinary Retention Brief History of Present Illness: Patient is an 84-year-old male with past medical history of hypertension, hyperlipidemia, diabetes type 2, glaucoma, hypothyroidism, BPH and macular degenerative disease who presents to the ED with complaints of abdominal pain with bladder distention and hematuria x 24 hours. Patient is s/p ventral hernia repair 2 days prior to this admission. ED workup showed WBC 14.8 potassium 6.7, blood glucose >500, lactic 9.8, CO2 13, and anion gap 31.7. CT abdomen/pelvis was completed with no acute findings. Patient was found to have several blood clots within the bladder and Haley was exchanged again while in the ED. Patient was admitted for DKA with UTI/urinary retention. Hospital Course: This is a summary of inpatient plan of care prior to transfer to [facility] on 03/06/2025 Diabetic ketoacidosis, resolved - Continue with ICU level of care for now - BG >500 upon arrival to the ED - Initial Lactic 9.8, K+6.7, C02 13, anion gap 31.7, trended down - Continue to monitor BMP/mag/po4 q4h and replete electrolytes as needed - lactic trended down to 1.5 - Insulin gtt completed and patient transitioned to long acting with moderate sliding scale - A1c 9.0% completed on 03/01 - Diet started 03/02 breakfast Urinary retention Urinary tract infection Hematuria Acute Kidney Injury,resolved - Patient was seen at [facility] and Urology placed coude cath for obstruction with c/f bladder neck contracture and patient was to f/u with Urology and maintain Haley cath - Continue with catheter for now and recommend discharging with catheter and outpatient Urology follow up - CT abdominal/pelvis completed in ED: Bladder decompressed from Haley catheter. Air within the bladder is probably related to instrumentation. - Monitor intake and output closely - Ceftriaxone initiated in the ED, completed 5 days inpatient - WBC trending down-trended - Creatinine trended down; 3.62 >1.02 - UA positive and culture without growth at final - Blood cultures likely a contaminant/positive for staph epidermidis, continue current antibiotics as patient is showing improvement at this time. Repeat BC ordered negative at 24hrs, needs contiued follow up for final result - 03/05: Urology consulted for blocked Haley cath again with hematuria. Catheter unclogged/flushed. Monitor urine output closely and consult urology again if it becomes blocked. Bedside nursing not to remove Haley catheter. Acute metabolic Encephalopathy, improved Hospital Delirium with Agitation, improving - Most likely secondary to above - Frequent re-orientation - Seroquel 50mg PRN for bedtime - Ammonia normal - Fall risk precautions - Precedex started overnight on 03/03 and 03/04, however weaned off in a.m. Seroquel was given, however discontined on 03/05 for increased risk of QT prolongation - CT head/brain wo ordered; negative - Passed Bed side swallow - PT/OT consulted and followed inpatient New onset A-fib/flutter - Patient's home dose metoprolol now at full dose of 25 mg twice daily - Cardiology consulted with recommendations for Sotelol 80 mg twice daily and continuance of anticoagulation Lovenox. Also recommendations for EKG to be completed after 3rd dose of Sotelol, will need follow-up - Continue to monitor on telemetry Large rectus sheath hematoma - CT of abdomen completed on 03/05 after complaints of abdominal pain, distention and return of hematuria. Scan showing large rectus sheath hematoma 9.2 x 8.6 cm - Discussed with Dr. Alexander and plans for CTA. Okay to continue with Lovenox for now (cardiology approved and nurse had already given AM dose prior to CT being completed) but hold on transitioning to oral anticoagulation at this time. Patient to wear abdominal binder at all times. Patient DID NOT receive evening Lovenox on 03/05 as he was still pending CTA result - 03/06: Patient became hypotensive and bradycardiac right at a.m. shift change. Patient was started on elisabeth and 3 units of blood was ordered along with full lab workup. Blood pressure/HR after elisabeth and blood was started, was MAP >65, HR 64- 66 and patient was alert and oriented following commands. Transfer was initiated immediately for stat surgical intervention as CTA showed enlarging hem atoma with size 13.5X14.3X6.9cm. Dr. Alexander was notified and transfer was accepted to [facility]. - Monitor H&H S/p Ventral Hernia Repair Constipation - Hernia repair completed on 02/27/[address] Alexander - 03/01: Patient was evaluated by Dr. Alexander and no postoperative complication concerns at this time - CT abdomen/pelvis with no acute postoperative changes - Hydrocodone/acetaminophen - Suppository daily, IV fluids, and BID senna for now - Reglan PRN q6h - Last BM 03/04 Diabetes type 2, chronic Hypoglycemia, resolved - Home med Novolin with 27units daily. 10 units started on 03/02, however patient had hypoglycemic episode - 03/05: Long acting increased to 10u in AM and 15u at night - IV fluids d51/2NS @75mL/hr, discontinued on 03/03 - Monitor BG closely - Carb controlled diet, encourage oral intake Hypertension, chronic Hyperlipidemia, chronic - Continue to monitor BP closely - Continue home med atorvastatin - Continue home meds metoprolol, Irbesartan, HCTZ and spironolactone Hypothyroidism, chronic - Not an active issue at this time - Reports home med Levothyroxine daily, continue BPH, Chronic - Reports home med Tamsulosin,continue Glaucoma, chronic - Reports home med timolol, continue Suspected Sleep Apnea - Placed on BIPAP overnight on 03/02 - Continue CPAP/BIPAP at night - Recommend sleep study outpatient Vital Signs/Physical Exam: Temp Pulse Resp BP Pulse Ox 97.3 F 48 L 9 L 78/32 L 100 03/06/25 04:00 03/06/25 06:00 03/06/25 06:00 03/06/25 06:00 03/06/25 06:00 General: Alert, Oriented x3 HEENT: Atraumatic Neck: Supple Respiratory: Normal air movement, Diminished Cardiovascular: No edema Capillary refill: <2 Seconds Gastrointestinal: Hypoactive, Soft and benign, Distended, Tenderness Musculoskeletal: No clubbing Integumentary: No rashes Neurological: Normal strength at 5/5 x4 extr, Normal affect Urinary: Bladder distention, Haley catheter (no Hematuria ) External genitalia: Edema Laboratory Data at Discharge: WBC 8.80 thou/uL (4.3-10.9) 03/06/25 06:20 Hgb 7.4 g/dL (13.6-17.9) L D 03/06/25 06:20 Hct 22.3 % (39.6-49.0) L 03/06/25 06:20 Plt Count 159 thou/uL (152-406) 03/06/25 06:20 PT 12.9 SECONDS (10-13.0) 03/05/25 08:32 INR 1.15 03/05/25 08:32 Sodium 138 mEq/L (136-145) 03/06/25 06:20 Potassium 4.3 mEq/L (3.5-5.1) 03/06/25 06:20 BUN 27 mg/dL (7-18) H 03/06/25 06:20 Creatinine 1.57 mg/dL (0.70-1.30) H 03/06/25 06:20 Glucose 225 mg/dL (74-106) H 03/06/25 06:20 Phosphorus 1.9 mg/dL (2.5-4.9) L 03/04/25 06:07 Magnesium 1.8 mg/dL (1.6-2.4) 03/05/25 08:32 Total Bilirubin 0.5 mg/dL (0.2-1.0) 03/06/25 06:20 AST 29 U/L (15-37) 03/06/25 06:20 ALT 18 U/L (16-61) 03/06/25 06:20 Alkaline Phosphatase 53 U/L (45-117) 03/06/25 06:20 Lipase 14 U/L (13-75) 03/01/25 07:53 Home Medications: Albuterol Neb [Proventil 0.083% Neb Soln] 2.5 mg IH Q4HP PRN 02/13/25 Aspirin [Aspirin EC 81 MG] 81 mg PO DAILY 02/13/25 Atorvastatin Calcium 40 mg PO DAILY 02/13/25 Fluoride (Sodium) [Prevident] 1 appl DT BEDTIME 02/13/25 Insulin NPH Human [Novolin N (Humulin N)*] 27 units SQ DAILY 02/13/25 Insulin Regular, Human [Novolin R] 12 unit SQ AC PRN 02/13/25 Irbesartan 150 mg PO BEDTIME 02/13/25 Levothyroxine [Synthroid] 125 mcg PO [id number] 02/13/25 Magnesium Oxide [Magnesium] 400 mg PO BEDTIME 02/13/25 Melatonin 10 mg PO BEDTIME 02/13/25 Metoprolol Tartrate [Lopressor] 25 mg PO BID 02/13/25 Montelukast [Singulair] 10 mg PO DAILY 02/13/25 Spironolactone [Aldactone] 25 mg PO DAILY 02/13/25 Tamsulosin HCl 0.4 mg PO BEDTIME 02/13/25 Timolol 0.5% Opth [Timoptic 0.5% Opth*] 1 drops LEFT EYE BID 02/13/25 Triamcin 0.1% [Kenalog Lotion 0.1%] 1 appl TOP BIDP PRN 02/13/25 Vit C/E/Zn/Coppr/Lutein/Zeaxan [Preservision Areds 2 Softgel] 1 each PO DAILY 02/13/25 Vitamin D3/Vitamin K2 (Mk4) [K2 Plus D3 Tablet] 1 each PO DAILY 02/13/25 hydroCHLOROthiazide [Hydrochlorothiazide*] 12.5 mg PO BID 02/13/25 Codeine/APAP [Tylenol W/Codeine #3 tab] 1 tab PO Q6HP PRN #1 tab 02/27/25 Physician Discharge Instructions: Patient to be transferred to [facility] as soon as possible for emergency surgery for active bleeding. Medications to be reevaluated once patient arrives at [facility] Diet: NPO Activity: Bedrest Followup: Carlene Crooks NP [Primary Care Provider] -
--- NOTE | 2025-03-06 16:38 | PN ---
Date of Progress Note: 03/06/2025 This 84-year-old patient with multiple medical problems including AFib, on anticoagulation, recently admitted with DKA and hyperkalemia. I know this patient from before because more than a week ago we did about a hernia repair in the umbilical region, doing well from that. Incisions are intact. He a lso has history of prostate hypertrophy with history of TURP, history of prostate surgery. He develo ped hematuria and then also yesterday developed pain in the area on the pelvic region. CAT scan was done and showing a pelvic hematoma. CTA was done showing pelvic hematoma expanding. Recently, the p atient had a blood clot in the bladder. It has been seen by urologist. The patient is awake, talkin g. The is at bedside. This morning, he has an episode of hypotension. CTA revealed as above t he hematoma coming from about 9 to 13 cm that is in the area of the pelvis comes to the right rectus area too. We noticed a CAT scan done several days ago shows no hematoma noted in that area except no w this patient is in anticoagulation. He has been combative every now and then needing some restrict ions, but today he is calm. Due to these findings on the area of the pelvis with possible extravasat ion since, we recommend the patient to have an angiogram that will help us to at least identify the a tonny of the bleeding and any procedure needed that cannot rule out an emboli. Thus, as long as he is hemodynamically stable for transfer and also we do not have angiogram available in this institution. So, patient most likely will be transferred. KARL/JESSE Voice ID: [id number] Report ID: [id number]
--- NOTE | 2025-03-06 19:23 | PN ---
Addendum: The patient is on Lovenox and Lovenox postop. type and cross was sent. The pa tient's abdomen is soft and depressible with no guarding, no rebound, just in the right groin area an d lower part of the rectus muscle. Previous incisions in the past are healed with no bleeding coming . In the area of the penis around the Haley catheter, there is some evidence of some blood at this m oment, although not profusely. Pulses dorsalis pedis still present. Femoral pulses still present an d popliteal. KARL/JESSE Voice ID: [id number] Report ID: [id number]
== END 2025-03-06 07:30 | disposition short-term general hospital (02) | DRG 698 ==
LOC: ER 06:58 → 3RD-ICU 10:28
PROVIDERS: ADMIT Internal Medicine; ATTEND Internal Medicine
PROC: 4A033R1 Measurement of Arterial Saturation, Peripheral, Percutaneous Approach (ICD-10-PCS; principal; 2025-03-01)
PROC: 5A09557 Assistance with Respiratory Ventilation, Greater than 96 Consecutive Hours, Continuous Positive Airway Pressure (ICD-10-PCS; 2025-03-02)
PROC: 30233N1 Transfusion of Nonautologous Red Blood Cells into Peripheral Vein, Percutaneous Approach (ICD-10-PCS; 2025-03-06)
DX: T83.518A Infection and inflammatory reaction due to other urinary catheter, initial encounter (principal); A41.1 Sepsis due to other specified staphylococcus; E11.10 Type 2 diabetes mellitus with ketoacidosis without coma; R65.20 Severe sepsis without septic shock; G93.41 Metabolic encephalopathy; N39.0 Urinary tract infection, site not specified; N17.9 Acute kidney failure, unspecified; F05 Delirium due to known physiological condition; S36.62XA Contusion of rectum, initial encounter; I48.92 Unspecified atrial flutter; N13.8 Other obstructive and reflux uropathy; N40.1 Benign prostatic hyperplasia with lower urinary tract symptoms; E87.5 Hyperkalemia; I48.91 Unspecified atrial fibrillation; I10 Essential (primary) hypertension; G47.30 Sleep apnea, unspecified; K59.00 Constipation, unspecified; E03.9 Hypothyroidism, unspecified; E11.649 Type 2 diabetes mellitus with hypoglycemia without coma; E11.39 Type 2 diabetes mellitus with other diabetic ophthalmic complication; H42 Glaucoma in diseases classified elsewhere; E78.00 Pure hypercholesterolemia, unspecified; R33.9 Retention of urine, unspecified; R31.0 Gross hematuria; Z79.4 Long term (current) use of insulin; Z79.82 Long term (current) use of aspirin; Z79.890 Hormone replacement therapy; Z79.899 Other long term (current) drug therapy; Z95.5 Presence of coronary angioplasty implant and graft; Z78.1 Physical restraint status; Z11.52 Encounter for screening for COVID-19
CPT/HCPCS: 36415; 36600; 51700; 70450; 71045; 74174; 74176; 80048; 80053; 80076; 81001; 82140; 82803; 82805; 82947; 83036; 83605; 83615; 83690; 83735; 83880; 84100; 84484; 85025; 85610; 86850; 86900; 86901; 86920; 87040; 87086; 87088; 87205; 88302; 93005; 93306; 93970; 94660; 96365; 96367; 96372; 96374; 96375; 97116; 97161; 97165; 97530; 99285; J0612; J0690; J0696; J1171; J1630; J1650; J1815; J2003; J2270; J2371; J2405; J2543; J2704; J3010; J3475; J3480; J7030; J7040; J7050; J7060; J7120; J7613; J7799; P9016; Q9967